=== PATIENT | female | born 1975 | race Caucasian/White ===

== ENCOUNTER → 2023-08-16 | Outpatient (CLI) | payer MEDICAID | END | disposition home or self-care (01) | LOC: MRI 09:50 | PROVIDERS: ATTEND Family Medicine | DX: M47.817 Spondylosis without myelopathy or radiculopathy, lumbosacral region (principal); M48.07 Spinal stenosis, lumbosacral region; M51.26 Other intervertebral disc displacement, lumbar region; D25.9 Leiomyoma of uterus, unspecified; R90.82 White matter disease, unspecified; R29.818 Other symptoms and signs involving the nervous system; R20.0 Anesthesia of skin | CPT/HCPCS: 70551; 72114; 72148 ==

== ENCOUNTER 2024-07-29 12:27 | Outpatient (CLI) | payer MEDICAID ==
[2024-07-29] MEDS ORDERED: APIX5TAB3 PO (17:07)
== END 2024-07-29 23:59 | disposition home or self-care (01) ==
LOC: VAS 12:27
PROVIDERS: ATTEND Nurse Practitioner
DX: I82.462 Acute embolism and thrombosis of left calf muscular vein (principal); M79.662 Pain in left lower leg
CPT/HCPCS: 93971

== ENCOUNTER 2024-07-29 13:13 | Emergency (ER) | payer MEDICAID ==
[~2024-07-29] VITALS: Ht 149.9 cm; Wt 61.9 kg
[2024-07-29 13:54] VITALS: TEMP 98
[2024-07-29] MEDS ORDERED: APIX5TAB3 PO (17:07)
[2024-07-29] MEDS: apixaban 5mg tablet PO ONE (17:51)
[2024-07-29 18:02] VITALS: BP 136/81; PULSE 75; RESP 18; O2SAT 100
== END 2024-07-29 18:04 | disposition home or self-care (01) ==
LOC: ER 13:14
DX: I82.492 Acute embolism and thrombosis of other specified deep vein of left lower extremity (principal)
CPT/HCPCS: 99283

== ENCOUNTER 2024-09-19 12:13 | Inpatient (IN) | payer MEDICAID ==
[2024-09-19] VITALS (8 sets, daily range): BP systolic 113–129; BP diastolic 56–72; PULSE 82–100; RESP 12–21; TEMP 97.5–98.6; O2SAT 98–100
[~2024-09-19] VITALS: Ht 149.9 cm; Wt 60.5 kg
[~2024-09-19 12:13] MED LIST: APIX5TAB3 PO
[2024-09-19 15:51] LABS: URINE HCG NEGATIVE (NEG)
[2024-09-19 15:52] LABS: MEAN CORPUSCULAR HEMOGLOBIN 18.5 PG (27.0-31.0); MEAN CORPUSCULAR HGB CONC 30.3 g/dL (33.0-36.5); MEAN CORPUSCULAR VOLUME 60.9 FL (78-98); MEAN PLATELET VOLUME 7.1 FL (7.4-10.4); PLATELET COUNT 459 X10'3 (140-440); RED CELL DISTRIBUTION WIDTH 20.6 % (11.5-14.5); WHITE BLOOD COUNT 8.8 X10'3 (4.5-11.0)
[2024-09-19 16:02] LABS: HEMATOCRIT 16.4 % (35.0-45.0)
[2024-09-19] MEDS ORDERED: iohexol 300mg/ml 100ml inj. ONE (16:04)
[2024-09-19 16:11] LABS: ALANINE AMINOTRANSFERASE 39 U/L (12-78); ALBUMIN 3.8 G/DL (3.4-5.0); ALBUMIN/GLOBULIN RATIO 1.1 (1.1-1.5); ALKALINE PHOSPHATASE 71 IU/L (46-116); ANION GAP 12 (8-16); ASPARTATE AMINO TRANSFERASE 21 U/L (10-37); BILIRUBIN,TOTAL 0.5 MG/DL (0.1-1.0); BLOOD UREA NITROGEN 9 MG/DL (7-18); BUN/CREATININE RATIO 11.7 (10.0-20.0); CALCIUM 8.5 MG/DL (8.5-10.1); CHLORIDE 107 MMOL/L (99-107); CREATININE 0.77 MG/DL (0.40-0.90); GLUCOSE 99 MG/DL (70-104); POTASSIUM 3.5 MMOL/L (3.5-5.1); SODIUM 141 MMOL/L (135-145); TOTAL CARBON DIOXIDE 22.1 MMOL/L (24-32); TOTAL PROTEIN 7.4 G/DL (6.4-8.2); eCRCL 61 ML/MIN; eGFR 80 ML/MIN
[2024-09-19 16:15] LABS: D-DIMER < 0.19 MG/L FEU (0-0.50)
[2024-09-19 16:26] LABS: ANISOCYTOSIS 3+; PLATELET ESTIMATE INCREASED; TOTAL CELLS COUNTED 100
[2024-09-19 16:27] LABS: HYPOCHROMASIA 2+
[2024-09-19 16:30] LABS: SCHISTOCYTES FEW; TEAR DROP CELLS FEW
[2024-09-19 16:31] LABS: MICROCYTOSIS 2+
[2024-09-19 16:35] LABS: ELLIPTOCYTES FEW
--- NOTE | 2024-09-19 17:11 | Physician Documentation ---
History of Present Illness ~ Chief Complaint: Shortness of Breath Stated Complaint: DVT POSS PE Time Seen by MD: 14:36 HPI Patient is seen today with complaints of shortness of breath that started about three days ago on Monday. Patient states she was diagnosed with blood clots in her legs about a month or so ago and has been on Eliquis since. Patient is currently taking Eliquis 5 mg twice a day. Patient denies any chest pain or abdominal pain or nausea, vomiting, diarrhea or melena or hematochezia or hematemesis. Patient denies any injuries or bleeding that she knows of. She has no other concern or complaint at this time. Medication Reconciliation Allergies: Coded Allergies: No Known Allergies (Unverified , 09/19/24) Scheduled Amlodipine Besylate (Amlodipine Besylate), 1 TAB PO DAILY, (Reported) Apixaban (Eliquis), 1 TAB PO Q12H Losartan Potassium (Losartan Potassium), 1 TAB PO DAILY, (Reported) Review of Systems Constitutional: Denies: chills, fever, weakness Eyes: Denies: pain, blurred vision ENT: Denies: ear pain, nose pain, throat pain, mouth pain Respiratory: Denies: cough, shortness of breath Cardiovascular: Denies: chest pain, palpitations Gastrointestinal: Denies: abdominal pain, nausea, vomiting Genitourinary: Denies: burning, dysuria Female Genitalia: Denies: vaginal discharge, pelvic pain Neurological: Denies: headache, dizziness Musculoskeletal: Denies: pain, swelling Integumentary: Denies: rash, lesions Allergic/Immunologic: Denies: hives, itching Hematologic/Lymphatic: Denies: no symptoms reported Psychiatric: Denies: depression, anxiety Physical Exam Vital Signs: Temperature: 98.6, Source: Oral, Heart Rate: 86, Respiratory Rate: 15, BP: 129/68, Pulse Oximetry: 100, Weight: 60.550 Oxygen Flow Rate: 0 Physical Exam General: Awake and Alert, no acute distress. Patient does appear pale. HEENT: Conjunctiva pink, Sclera clear, Mucus Membranes moist. Neck: Supple without masses and tenderness. Resp: Unlabored. Lungs clear to auscultation bilaterally. Heart: Regular Rate and rhythm, normal S1 and S2 without murmur, rub or gallop. Abdomen: Soft and non tender no organomegaly Extremities: No cyanosis,clubbing or edema. Skin: Warm and Dry. Progress Results/Orders Results/Orders Orders - ROBERT ALVARADO R PAC Cta Chest Pe (09/19/24 16:46) Cbc/Diff (09/19/24 15:22) Man Diff (09/19/24 15:38) Page Hospitalist (09/19/24 16:13) Fill Out Med Reconciliation (09/19/24 16:13) Type And Screen (09/19/24 16:14) Lrpc - Active Bleeding (09/19/24 16:14) Pathology Review (09/19/24 15:38) Completed Orders - ROBERT ALVARADO R PAC Cta Chest Pe (09/19/24 16:46) CMP (09/19/24 15:22) Hcg, Ur Ql (09/19/24 15:22) D-Dimer (09/19/24 15:22) Iohexol 300mg/Ml 100ml Inj. (Omnipaque-3 (09/19/24 16:04) Vital Signs 09/19/24 09/19/24 09/19/24 12:40 14:36 14:36 Temp 98.6 Pulse 93 86 Resp 16 15 15 B/P (MAP) 120/61 129/68 (88) Pulse Ox 100 100 O2 Flow Rate 0 Laboratory Tests Test 09/19/24 15:30 09/19/24 15:38 09/19/24 17:40 Urine HCG, Qualitative Negative White Blood Count 8.8 Red Blood Count 2.70 L Hemoglobin 5.0 *L Hematocrit 16.4 *L Mean Corpuscular Volume 60.9 L Mean Corpuscular Hemoglobin 18.5 L Mean Corpuscular Hemoglobin Concent 30.3 L Red Cell Distribution Width 20.6 H Platelet Count 459 H Mean Platelet Volume 7.1 L Neutrophils (%) (Auto) Lymphocytes (%) (Auto) Monocytes (%) (Auto) Eosinophils (%) (Auto) Basophils (%) (Auto) Neutrophils # (Auto) Lymphocytes # (Auto) Monocytes # (Auto) Eosinophils # (Auto) Basophils # (Auto) CBC Comment Differential Total Cells Counted 100 Neutrophils % (Manual) 73.0 Lymphocytes % (Manual) 22.0 Monocytes % (Manual) 5.0 Platelet Estimate Increased Red Blood Cell Morphology Perf Hypochromasia 2+ Poikilocytosis Basophilic Stippling Anisocytosis 3+ Microcytosis 2+ Tear Drop Cells Few Elliptocytes Few Schistocytes Few D-Dimer < 0.19 D-Dimer Comment Sodium Level 141 Potassium Level 3.5 Chloride Level 107 Carbon Dioxide Level 22.1 L Anion Gap 12 Blood Urea Nitrogen 9 Creatinine 0.77 Estimated GFR/1.73 m2 80 BUN/Creatinine Ratio 11.7 Glucose Level 99 Calcium Level 8.5 Total Bilirubin 0.5 Aspartate Amino Transf (AST/SGOT) 21 Alanine Aminotransferase (ALT/SGPT) 39 Alkaline Phosphatase 71 Total Protein 7.4 Albumin 3.8 Globulin 3.6 Albumin/Globulin Ratio 1.1 Chemistry Comments Medical Decision Making Findings Patient is seen today with complaints of shortness of breath that started about three days ago on Monday. Patient states she was diagnosed with blood clots in her legs about a month or so ago and has been on Eliquis since. Patient is currently taking Eliquis 5 mg twice a day. Patient denies any chest pain or abdominal pain or nausea, vomiting, diarrhea or melena or hematochezia or hematemesis. Patient denies any injuries or bleeding that she knows of. She has no other concern or complaint at this time. Patient's labs did show severe anemia with hemoglobin at 5.0. Patient will be admitted to hospitalist for consult and further eval. I did order blood transfusion of 2 units as well as type and screen. Departure Disposition: 09 ADMITTED INPATIENT Admitted to Inpatient Unit: to hospitalist Admission Level of Care: Med/Surg with Tele Impression: Primary Impression: Anemia Qualified Codes: D64.9 - Anemia, unspecified Additional Impression: Difficulty breathing Condition: Stable Referrals: NO PRIMARY CARE PROVIDER (PCP) Signature Scribe Signature: No scribe Attestation: No scribe ROBERT ALVARADO PAC September 19, 2024 17:11
--- NOTE | 2024-09-19 17:17 | RADIOLOGY REPORT ---
Indication: PE Rule Out, SOB Technique: CT axial images of the chest are obtained with intravenous contrast per CT angiogram prot ocol. Coronal and sagittal reformats were obtained. Radiation Dose Information: CTDI volume is 8.3 mGy. Dose-length product is 327 mGy*cm Comparison: None FINDINGS: No filling defect within the main left and right pulmonary arteries. The segmental and subsegmental branches are suboptimally opacified, limiting evaluation. Trachea patent. No pneumothorax. Bilateral atelectasis. There is no pulmonary airspace consolidation . Heart normal in size. No mediastinal/ hilar lymphadenopathy. Left thyroid nodule measuring 1.8 cm. No supraclavicular, axillary lymphadenopathy. No aggressive osseous process. [id number]-xtewfbny thoracic degenerative disc disease IMPRESSION: 1. Suboptimal opacification of the pulmonary arteries. No large PE identified. The segmental and hoang bsegmental branches are suboptimally opacified/ evaluated. If clinical concern persists recommend ob taining repeat CT angiogram of the chest. 2. 1.8 cm left thyroid nodule which can be further characterized with thyroid ultrasound in the nonem ergent setting.
[2024-09-19] MEDS ORDERED: potassium Cl 40MEQ/1/2NS 520ml 520 ML IV PRN ×2 (17:50)
[2024-09-19] MEDS ORDERED: magnesium sulf-water 4G/100mL 100 ML IV PRN ×2 (17:50)
[2024-09-19] MEDS ORDERED: potassium Cl 20 mEq SR tablet PO PRN ×4 (17:50)
[2024-09-19] MEDS ORDERED: magnesium sulf-water 2g/50mL 50 ML IV PRN ×2 (17:50)
[2024-09-19] MEDS ORDERED: acetaminophen 325mg tablet PO PRN ×3 (17:50)
[2024-09-19] MEDS ORDERED: mag hydrox/Alum hydrox/simeth 30ml oral suspension PO PRN (17:50)
[2024-09-19] MEDS ORDERED: ondansetron/PF 4mg/2ml inj IV PRN ×2 (17:50)
[2024-09-19] MEDS ORDERED: magnesium hydroxide 30ml (MOM) UD suspension PO PRN (17:50)
[2024-09-19] MEDS ORDERED: magnesium Cl slow-release 64mg tablet PO PRN ×2 (17:50)
--- NOTE | 2024-09-19 18:06 | HISTORY AND PHYSICAL-Residence ---
History & Physical Providers to CC Resident Creating Document: AL PHILLIP RES ~ History of Present Illness Primary Medical Doctor: Dr Fernandes, [facility] Reason for Admit\Complaint: Shortness of breath History of Present Illness 49-year-old female patient with a past medical history of hypertension and left lower limb VTE presented to the hospital with complaints of new onset shortness of breath. She stated that she started noticing symptoms of shortness of breaths starting on Monday with increasing SOB with short distance as well. SOB is also associated with palpitations and dry cough. She states that the only thing that wakes her up in the middle of the night as a dry cough. Denies any chest tightness, chest pain, dizziness, or syncopal episodes. Also denies recent sick contacts or recent URTI symptoms. Patient has recently diagnosed with a left lower limb unprovoked VTE one week ago and was started on Eliquis. She also developed right lower limb pain that starting from the groin and extending all the way down to the foot two days ago as well due to which she has a scheduled outpatient ultrasound planned for the 24 of September. Denies any joint pains, muscle pains, joint stiffness, synovitis, new rashes, prior history of bleeding or clotting issues, prolonged or heavy menstrual cycle, miscarriages, numbness or weakness. Denies use of estrogen or other hormonal pills, no hormone IUDs as well. Denies loss of appetite or weight loss. Allergies: Coded Allergies: No Known Allergies (Unverified , 09/19/24) Home Medications Home Medications Active Eliquis (Apixaban) 5 Mg Tablet 1 Tab PO Q12H 30 Days Past Medical History Past Medical History Hypertension Left lower limb VTE Past Surgical History Surgical History Comment None Past Social History Social History Comment Nonsmoker, no alcohol use or illicit drug abuse. Has never worked in her lifetime. Lives at home with the parents. She has two kids. ROS ROS As stated above in the HPI, otherwise all systems are reviewed and negative. Constitutional: Denies: chills, fever, weakness Eyes: Denies: pain, blurred vision ENT: Denies: ear pain, nose pain, throat pain, mouth pain Respiratory: Denies: cough, shortness of breath Cardiovascular: Denies: chest pain, palpitations Gastrointestinal: Denies: abdominal pain, nausea, vomiting Genitourinary: Denies: burning, dysuria Neurological: Denies: headache, dizziness Musculoskeletal: Denies: pain, swelling Integumentary: Denies: rash, lesions Allergic/Immunologic: Denies: hives, itching Hematologic/Lymphatic: Denies: no symptoms reported Psychiatric: Denies: depression, anxiety Exam Vitals: Vital Signs Date Time Temp Pulse Resp B/P (MAP) Pulse Ox O2 Delivery O2 Flow Rate FiO2 09/19/24 14:36 86 15 129/68 (88) 100 09/19/24 12:40 98.6 0 General: General: Awake and Alert, no acute distress. Intentional and resting tremulousness of her lower jaw and her extremities HEENT: Conjunctiva pale, Sclera clear, Mucus Membranes moist. Resp: Unlabored. Lungs clear to auscultation bilaterally. Heart: Regular Rate and rhythm, normal S1 and S2 without murmur, rub or gallop. Abdomen: Soft and non tender no organomegaly Extremities: No cyanosis,clubbing or edema. DIGITAL SOLUTION ARCHITECT: Alert oriented x4. No motor or sensory deficits. No cranial nerve deficits. Rectal exam: Large hemorrhoids present Skin: Warm and Dry. Diagnostic Data Last Recorded Lab Results: 09/19/24 1538 09/19/24 1538 Diagnostic Data: Laboratory Tests Test 09/19/24 15:38 D-Dimer < 0.19 MG/L FEU (0-0.50) D-Dimer Comment Advance Care Planning Advanced Care plannin - 30 Minutes Additional Plan 1. Acute shortness of breath: Acute microcytic and hypochromic anemia Hemoglobin 5.0 Anemia likely leading to acute shortness of breath In the setting of acute unprovoked left lower limb VTE D-dimers less than 0.1, CTA unable to exclude pulmonary embolism Follow bilateral venous ultrasound to rule out lower limb DVT; mainly of the right leg Continue Eliquis 5 mg b.i.d. Follow COVID-19 tests For the anemia, ordered 2 units PRBC Positive stool for occult blood Continue monitoring CBC and transfuse if hemoglobin less than seven 2. Heavy menstrual cycle: Likely secondary to Eliquis use But follow pelvic ultrasound to rule out anything significant 3. Hypertension: Continue home medication of Cozaar after reconciliation Lines: PIV Code status: Full code Diet: Regular GI prophylaxis: Protonix DVT prophylaxis: Eliquadrianne Phillip PGY2, Internal medicine resident Date of Service: September 19, 2024 Billing Provider: MELVA MARAVILLA MD Common Visit Codes: [id number]-[id number] INP/OBS CARE (HIGH) Secondary Visit Codes: [id number] CARE PLAN 30 MINUTES AL PHILLIP, JUVENAL September 19, 2024 18:06 MELVA MARAVILLA MD September 19, 2024 19:18
--- NOTE | 2024-09-19 19:00 | RADIOLOGY REPORT ---
Clinical History SOB Comparison None Without Contrast PORTER GALLO, [id number] Technique: Single view PA upright chest x-ray Findings: The lungs are unremarkable. No pleural abnormality. The cardiomediastinal silhouette is unremarkable for an AP view. No acute osseous abnormality. The imaged part of the upper abdomen reveals nonspecific gaseous distention of the colon. Impression: No evidence of acute cardiopulmonary disease This report was electronically signed by Maira Durant MD on 09/19/2024 6:57:48 PM.
[2024-09-19] MEDS ORDERED: AMLO5TAB16 PO (19:01)
[2024-09-19] MEDS ORDERED: LOSA100T58 PO (19:01)
[2024-09-19] MEDS: K and/or MAG REPLACEMENT MC SCH (19:04)
[2024-09-19 19:07] LABS: % IRON SATURATION 2 % (11-46); IRON 11 UG/DL (49-151); TOTAL IRON BINDING CAPACITY 522 UG/DL (259-388)
[2024-09-19 19:35] LABS: OCCULT BLOOD STOOL POSITIVE (Neg)
[2024-09-19] MEDS: docusate sod 100mg capsule PO SCH (21:04)
[2024-09-19] MEDS: apixaban 5mg tablet PO SCH (21:05)
[2024-09-19] MEDS: pantoprazole 40MG/NS 100ML BAG 100 ML IV SCH (23:22)
[2024-09-20] VITALS (8 sets, daily range): BP systolic 110–150; BP diastolic 54–78; PULSE 75–93; RESP 15–26; TEMP 97.4–98.5; O2SAT 97–100
[2024-09-20 03:41] LABS: BASOPHILS # (AUTO) 0.1 X10'3 (0-0.2); EOSINOPHILS # (AUTO) 0.1 X10'3 (0-0.9)
[2024-09-20 03:43] LABS: BASOPHILS % (AUTO) 1.3 % (0-1); EOSINOPHILS % (AUTO) 1.1 % (0-6); HEMATOCRIT 28.6 % (35.0-45.0); HEMOGLOBIN 8.9 g/dl (12.0-16.0); LYMPHOCYTES # (AUTO) 3.2 X10'3 (1.1-4.8); LYMPHOCYTES % (AUTO) 38.3 % (21-51); MEAN CORPUSCULAR HEMOGLOBIN 21.6 PG (27.0-31.0); MEAN CORPUSCULAR HGB CONC 31.2 g/dL (33.0-36.5); MEAN CORPUSCULAR VOLUME 69.1 FL (78-98); MEAN PLATELET VOLUME 7.4 FL (7.4-10.4); MONOCYTES # (AUTO) 0.6 X10'3 (0-0.9); MONOCYTES % (AUTO) 6.7 % (2-12); NEUTROPHILS # (AUTO) 4.4 X10'3 (1.8-7.7); NEUTROPHILS % (AUTO) 52.6 % (42-75); PLATELET COUNT 410 X10'3 (140-440); RED BLOOD COUNT 4.15 X10'6 (4.20-5.60); RED CELL DISTRIBUTION WIDTH 25.4 % (11.5-14.5); WHITE BLOOD COUNT 8.3 X10'3 (4.5-11.0)
[2024-09-20 03:52] LABS: ALBUMIN 3.5 G/DL (3.4-5.0); ANION GAP 11 (8-16); BLOOD UREA NITROGEN 12 MG/DL (7-18); BUN/CREATININE RATIO 14.1 (10.0-20.0); CALCIUM 8.6 MG/DL (8.5-10.1); CHLORIDE 107 MMOL/L (99-107); CREATININE 0.85 MG/DL (0.40-0.90); GLUCOSE 87 MG/DL (70-104); SODIUM 138 MMOL/L (135-145); TOTAL CARBON DIOXIDE 20.3 MMOL/L (24-32); eCRCL 55 ML/MIN; eGFR 71 ML/MIN
[2024-09-20] MEDS ORDERED: pantoprazole 40 MG vial IV SCH (08:00)
[2024-09-20 08:37] LABS: FERRITIN 3 NG/ML (8-252)
--- NOTE | 2024-09-20 10:51 | VASCULAR REPORT ---
EXAM: VASC VL VENOUS Clinical History: History of DVT in the left gastroc. Comparison: VASC VL VENOUS on DOS: 07/29/24 Technique: Duplex Doppler evaluation of the deep venous systems of both lower extremities from the co mmon femoral veins to the popliteal veins including color Doppler and spectral/pulsed waveform analys is was performed. Findings: RIGHT SIDE: The common femoral vein demonstrates appropriate compressibility and waveform variability. There is compressibility/patency of the great saphenous vein at the proximal thigh. The femoral vein demonstrates appropriate compressibility and waveform variability. The deep femoral vein demonstrates appropriate compressibility and waveform variability. The popliteal vein demonstrates appropriate compressibility and waveform variability. There is color flow at the tibioperoneal trunk and in the posterior tibial vein. LEFT SIDE: The common femoral vein demonstrates appropriate compressibility and waveform variability. There is compressibility/patency of the great saphenous vein at the proximal thigh. The femoral vein demonstrates appropriate compressibility and waveform variability. The deep femoral vein demonstrates appropriate compressibility and waveform variability. The popliteal vein demonstrates appropriate compressibility and waveform variability. There is color flow at the tibioperoneal trunk and in the posterior tibial vein. Impression: 1. No right or left femoropopliteal venous thrombosis.
[2024-09-20 12:18] LABS: FREE T4 (FREE THYROXINE) 0.82 NG/DL (0.73-1.40); THYROID STIMULATING HORMONE 1.14 ulU/ml (0.34-4.50)
[2024-09-20] MEDS: ferrous sulfate 325mg tablet PO SCH (12:27)
[2024-09-20] MEDS: acetaminophen 325mg tablet PO PRN (13:44)
--- NOTE | 2024-09-20 14:08 | PROGRESS NOTE- Residence ---
Progress Note - Resident Providers to CC Resident Creating Document: AL CANALES, JUVENAL ~ Central Line/PICC still needed: No Timmons-Non Protocol Timmons Indications Met/Not Met: F/C Indications Not Met Antibiotic Timeout Antibiotic Ordered?: No Objective Vital Signs Date Time Temp Pulse Resp B/P (MAP) Pulse Ox O2 Delivery O2 Flow Rate FiO2 09/20/24 07:45 Room Air 0.0 09/20/24 06:30 79 09/20/24 06:00 97.9 19 138/76 (96) 98 Result Diagram: 09/20/24 0330 09/20/24 033 General: Awake and Alert, no acute distress. HEENT: Conjunctiva pale, Sclera clear, Mucus Membranes moist. Resp: Unlabored. Lungs clear to auscultation bilaterally. Heart: Regular Rate and rhythm, normal S1 and S2 without murmur, rub or gallop. Abdomen: Soft and non tender no organomegaly Rectal exam: Large external hemorrhoids noted Extremities: No cyanosis,clubbing or edema. Skin: Warm and Dry. 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 She is being evaluated for new onset significant anemia. Plan Plan 1. Acute shortness of breath: Improved Acute microcytic and hypochromic anemia Hemoglobin 5.0; improved to 8.9 Iron-deficiency anemia Anemia likely leading to acute shortness of breath In the setting of acute unprovoked left lower limb VTE D-dimers less than 0.1, CTA unable to exclude pulmonary embolism Follow bilateral venous ultrasound to rule out lower limb DVT; mainly of the right leg Continue Eliquis 5 mg b.i.d. Follow COVID-19 tests For the anemia, ordered 2 units PRBC Positive stool for occult blood Continue monitoring CBC and transfuse if hemoglobin less than seven 09/20/2024: Received 2 units PRBC after which he had improved from 5.0-8.9, which is unusual and raises suspicion to either want to be a wrong lab report Follow CBC q.12h and monitor for hemoglobin levels Continues to deny any melena or hematochezia Discussed patient with Dr. Pitts; recommends colonoscopy tomorrow in a.m.. If colonoscopy negative, Dr. Pitts we will continue with the EGD. Continue Protonix drip at this time Iron studies revealed iron deficiency anemia. Started the patient on ferrous sulfate and vitamin-C. Colonoscopies we will be able to identify possible underlying GI disorders leading to CYDNEY like celiac/IBD NPO after midnight. Clear liquid diet for today 2. History of left lower limb VTE: On Eliquis 5 mg b.i.d. Unprovoked VTE Follows Dr. Mcbride [facility] Bilateral lower limb venous Dopplers are negative for VTE We will obtain records from [facility] for prior venous Dopplers We will hold Eliquis 5 mg b.i.d. at this time, restart if colonoscopy and endoscopy are negative All possibly diagnosed to causes of unprovoked VTE including antiphospholipid antibody syndrome, protein deficiency/mutations, possible malignancy has been addressed. We will follow up outpatient with the PCP if requiring a diagnosis 3. Heavy menstrual cycle: Likely secondary to Eliquis use Awaiting pelvic ultrasound 4. Hypertension: Continue home medication of Cozaar after reconciliation Lines: PIV Code status: Full code Diet: Regular GI prophylaxis: Protonix DVT prophylaxis: Ginger Canales PGY2, Internal medicine resident Date of Service: September 20, 2024 Billing Provider: MELVA MARAVILLA MD Common Visit Codes: [id number] INP/OBS CARE(HIGH) AL CANALES, RES September 20, 2024 14:08 MELVA MARAVILLA MD September 20, 2024 18:33
[2024-09-20 15:47] LABS: MEAN CORPUSCULAR VOLUME 68.6 FL (78-98)
[2024-09-20 15:49] LABS: HEMATOCRIT 26.3 % (35.0-45.0); HEMOGLOBIN 8.6 g/dl (12.0-16.0); MEAN CORPUSCULAR HEMOGLOBIN 22.3 PG (27.0-31.0); MEAN CORPUSCULAR HGB CONC 32.5 g/dL (33.0-36.5); MEAN PLATELET VOLUME 8.3 FL (7.4-10.4); PLATELET COUNT 396 X10'3 (140-440); RED BLOOD COUNT 3.84 X10'6 (4.20-5.60); RED CELL DISTRIBUTION WIDTH 25.9 % (11.5-14.5); WHITE BLOOD COUNT 7.3 X10'3 (4.5-11.0)
[2024-09-20] MEDS: PEG 3350/Na sulf,bicarb,Cl/KCl oral sol 4 liter bottle PO ONE (15:59)
[2024-09-20 16:19] LABS: TOTAL CELLS COUNTED 100
[2024-09-20 16:20] LABS: ANISOCYTOSIS 3+; ELLIPTOCYTES 1+; HYPOCHROMASIA 1+; MICROCYTOSIS 2+; PLATELET ESTIMATE NORMAL; SCHISTOCYTES FEW; STOMATOCYTES FEW; TARGET CELLS FEW
[2024-09-20 16:21] LABS: POLYCHROMASIA 1+
--- NOTE | 2024-09-20 17:08 | RADIOLOGY REPORT ---
Procedure: US ULTRASOUND PELVIS W/ORWO DPLX 09/20/2024 03:08 PM Indication: Heavy menstrual cycle Comparison: None Technique: Real-time grayscale and color images were obtained utilizing a transabdominal probe. FINDINGS: UTERUS: Anteverted, measuring 9.4 cm in length. A 4.6 x 2.3 x 2.7 cm subserosal leiomyoma is seen i n the anterior wall. ENDOMETRIAL STRIPE: 1.3 cm in thickness. Homogenous echotexture. No fluid in the endometrial canal. CERVIX: Few subcentimeter simple Nabothian cysts are seen. RIGH OVARY: 3.5 cm in length. Delete. Preserved vascular flow. No suspicious lesions identified. LEFT OVARY: 2.8 cm in length. Delete Preserved vascular flow. No suspicious lesions identified. CUL-DE-SAC: No significant fluid noted. OTHER: None. IMPRESSION: 1. No sonographic evidence for an acute intrapelvic process. 2. Myomatous uterus a 4.6 cm subserosal leiomyoma noted in the anterior wall.
[2024-09-20] MEDS: ascorbic acid 500mg tablet PO SCH (17:34)
[2024-09-21] VITALS (11 sets, daily range): BP systolic 121–143; BP diastolic 56–110; PULSE 14–82; RESP 12–74; TEMP 97.4–97.8; O2SAT 97–99
[2024-09-21 00:21] LABS: HEMOGLOBIN 9.1 g/dl (12.0-16.0)
[2024-09-21 00:23] LABS: HEMATOCRIT 29.3 % (35.0-45.0); MEAN CORPUSCULAR HEMOGLOBIN 21.4 PG (27.0-31.0); MEAN CORPUSCULAR HGB CONC 31.1 g/dL (33.0-36.5); MEAN CORPUSCULAR VOLUME 68.9 FL (78-98); MEAN PLATELET VOLUME 8.8 FL (7.4-10.4); PLATELET COUNT 401 X10'3 (140-440); RED BLOOD COUNT 4.26 X10'6 (4.20-5.60); RED CELL DISTRIBUTION WIDTH 25.8 % (11.5-14.5); WHITE BLOOD COUNT 6.2 X10'3 (4.5-11.0)
[2024-09-21 02:15] LABS: TOTAL CELLS COUNTED 100
[2024-09-21 02:17] LABS: ANISOCYTOSIS 3+; HYPOCHROMASIA 1+; MICROCYTOSIS 2+; PLATELET ESTIMATE NORMAL; TARGET CELLS FEW
[2024-09-21 05:57] LABS: HEMOGLOBIN 8.7 g/dl (12.0-16.0); MEAN CORPUSCULAR HEMOGLOBIN 21.6 PG (27.0-31.0); MEAN CORPUSCULAR HGB CONC 31.2 g/dL (33.0-36.5); MEAN CORPUSCULAR VOLUME 69.3 FL (78-98); MEAN PLATELET VOLUME 8.2 FL (7.4-10.4); PLATELET COUNT 380 X10'3 (140-440); RED BLOOD COUNT 4.05 X10'6 (4.20-5.60); RED CELL DISTRIBUTION WIDTH 25.6 % (11.5-14.5)
[2024-09-21 06:25] LABS: ALBUMIN 3.3 G/DL (3.4-5.0); ANION GAP 12 (8-16); BLOOD UREA NITROGEN 8 MG/DL (7-18); BUN/CREATININE RATIO 12.3 (10.0-20.0); CALCIUM 8.1 MG/DL (8.5-10.1); CHLORIDE 107 MMOL/L (99-107); CREATININE 0.65 MG/DL (0.40-0.90); GLUCOSE 80 MG/DL (70-104); MAGNESIUM 2.1 MG/DL (1.5-2.4); POTASSIUM 3.5 MMOL/L (3.5-5.1); SODIUM 141 MMOL/L (135-145); TOTAL CARBON DIOXIDE 22.2 MMOL/L (24-32); eCRCL 72 ML/MIN; eGFR > 90 ML/MIN
[2024-09-21 07:00] LABS: WHITE BLOOD COUNT 6.7 X10'3 (4.5-11.0)
[2024-09-21 07:01] LABS: HEMATOCRIT 27.3 % (35.0-45.0); HEMOGLOBIN 8.5 g/dl (12.0-16.0); MEAN CORPUSCULAR HEMOGLOBIN 21.7 PG (27.0-31.0); MEAN CORPUSCULAR HGB CONC 31.3 g/dL (33.0-36.5); MEAN CORPUSCULAR VOLUME 69.1 FL (78-98); PLATELET COUNT 374 X10'3 (140-440); RED BLOOD COUNT 3.94 X10'6 (4.20-5.60); RED CELL DISTRIBUTION WIDTH 25.9 % (11.5-14.5)
[2024-09-21 07:06] LABS: ANISOCYTOSIS 3+; MICROCYTOSIS 2+; PLATELET ESTIMATE NORMAL; TOTAL CELLS COUNTED 100
[2024-09-21 07:07] LABS: TARGET CELLS FEW
--- NOTE | 2024-09-21 07:09 | CARDIOLOGY REPORT ---
APPROVED REPORT EXAM: Comprehensive 2D, Doppler, and color-flow Echocardiogram. Patient Location: 301 Blood Pressure: 125/71 mmHg Heart Rate: 90 bpm Rhythm: NSR Indications SOB Hypertension Vineyard Tender unknown No previous echo 2D Dimensions LA Diam3.5 cm IVSd 1.1 (0.7-1.1cm) LVDd 4.8 cm PWd 1.0 (0.7-1.1cm) IVSs 1.4 (0.8-1.2cm) LVDs 3.0 (2.5-4.0cm) Aortic Root(2D) 2.8 cm PWs 1.4 (0.8-1.2cm) LVOT Diameter 1.92 (1.8-2.4cm) LVEF(%) 68.4 (>50%) FS (%) 38.3 % SV 74.5 ml CO 7.2 L/min M-Mode Dimensions MV EPSS 0.7 (<0.5cm) Aortic Valve AoV Peak Blake. 160.8 cm/s AoV VTI 28.8 cm AO Peak GR. 10.3 mmHg AO Mean GR. 5 mmHg LVOT VTI 27.15 cm LVOT Peak Blake. 138.6 cm/s PAULY(VTI)/BSA 2.73 cm2/m2 PAULY (VTI) 2.73 cm2 Mitral Valve MV E Velocity 69.8 cm/s MV Peak Gr. 3 mmHg MV DECEL TIME 180 ms MV A Velocity 87.6 cm/s MV PHT 32 ms E/A Ratio 0.8 MVA (PHT) 6.88 cm2 MV VMax92.5 cm/s TDI Medial E' P. V 11.48 cm/s E/Medial E' 6.1 Tricuspid Valve TR P. Velocity 352 cm/s RAP ESTIMATE 10 mmHg TR Peak Gr. 50 mmHg RVSP 60 mmHg Pulmonary Vein S1 Velocity 70.1 cm/s D2 Velocity 36.4 cm/s PVa Yxrcnxim48.6 cm/s PVa [id number] msec LEFT VENTRICLE Normal LV size and wall thickness. Overall systolic function is normal. LVEF is 65%. RIGHT VENTRICLE RV appears mildly dilated with normal contractility. RVSP is estimated at 60 mmHG. ATRIA The left atrium size is normal. AORTIC VALVE Trileaflet AV appears sclerotic without stenosis. No insufficiency. MITRAL VALVE MV is thickened with mild annular thickening and no stenosis. Trace mitral regurgitation. TRICUSPID VALVE The tricuspid valve is normal in structure. Mild tricuspid regurgitation. PULMONIC VALVE The pulmonary valve is normal in structure. Trace pulmonic regurgitation. GREAT VESSELS The aortic root is normal in size. IVC is not well visualized. PERICARDIUM There is no pericardial effusion. Other Information Study Quality: Adequate but poor subcostals Conclusion Normal LV size and wall thickness. Overall systolic function is normal. LVEF is 65%. RV appears mildly dilated with normal contractility. RVSP is estimated at 60 mmHG. The left atrium size is normal. Trileaflet AV appears sclerotic without stenosis. No insufficiency. MV is thickened with mild annular thickening and no stenosis. Trace mitral regurgitation. The tricuspid valve is normal in structure. Mild tricuspid regurgitation. The pulmonary valve is normal in structure. Trace pulmonic regurgitation. There is no pericardial effusion.
[2024-09-21 08:22] LABS: NUCLEATED RED BLOOD CELLS 1 /100WBC (0-0); TOTAL CELLS COUNTED 100
[2024-09-21 08:23] LABS: ANISOCYTOSIS 3+; HYPOCHROMASIA 2+; MICROCYTOSIS 2+; PLATELET ESTIMATE NORMAL
[2024-09-21 08:24] LABS: POLYCHROMASIA 1+; TARGET CELLS FEW; TEAR DROP CELLS FEW
[2024-09-21] MEDS ORDERED: MIDAZolam 1mg/ml 10ml vial ONE (11:05)
[2024-09-21] MEDS ORDERED: LIDOcaine 2% Viscous 15ml cup ONE (11:05)
[2024-09-21] MEDS ORDERED: fentaNYL/PF 50MCG/1 ML 2ML syringe ONE (11:05)
[2024-09-21] MEDS ORDERED: MIDAZolam 1 MG/ML 5ML VIAL ONE (11:06)
--- NOTE | 2024-09-21 14:40 | PROGRESS NOTE- Residence ---
Progress Note - Resident Providers to CC Resident Creating Document: AL CANALES, JUVENAL ~ Central Line/PICC still needed: No Timmons-Non Protocol Timmons Indications Met/Not Met: F/C Indications Not Met Antibiotic Timeout Antibiotic Ordered?: No Subjective Patient underwent the colonoscopy today. No acute overnight events or acute complaints at this time. Has not had any episodes of melena, hematochezia or bleeding per vagina through the hospitalization. Objective Vital Signs Date Time Temp Pulse Resp B/P (MAP) Pulse Ox O2 Delivery O2 Flow Rate FiO2 09/21/24 12:59 70 16 121/68 98 09/21/24 12:09 Nasal Cannula 4.0 09/21/24 06:00 97.4 Result Diagram: 09/21/24 0638 09/21/24 0426 General: Awake and Alert, no acute distress. HEENT: Conjunctiva pale, Sclera clear, Mucus Membranes moist. Resp: Unlabored. Lungs clear to auscultation bilaterally. Heart: Regular Rate and rhythm, normal S1 and S2 without murmur, rub or gallop. Abdomen: Soft and non tender no organomegaly Extremities: No cyanosis,clubbing or edema. Skin: Warm and Dry. 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 She is being evaluated for new onset significant anemia. Plan Plan 1. Acute shortness of breath: Improved Acute microcytic and hypochromic anemia Hemoglobin 5.0; improved after 2 units PRBC Iron-deficiency anemia- heavy menstrual bleeding and severe gastritis induced Anemia likely leading to acute shortness of breath In the setting of acute unprovoked left lower limb VTE D-dimers less than 0.1, CTA unable to exclude pulmonary embolism Follow bilateral venous ultrasound to rule out lower limb DVT; mainly of the right leg Continue Eliquis 5 mg b.i.d. Follow COVID-19 tests For the anemia, ordered 2 units PRBC Positive stool for occult blood Continue monitoring CBC and transfuse if hemoglobin less than seven 09/20/2024: Received 2 units PRBC after which he had improved from 5.0-8.9, which is unusual and raises suspicion to either want to be a wrong lab report Follow CBC q.12h and monitor for hemoglobin levels Continues to deny any melena or hematochezia Discussed patient with Dr. Pitts; recommends colonoscopy tomorrow in a.m.. If colonoscopy negative, Dr. Pitts we will continue with the EGD. Continue Protonix drip at this time Iron studies revealed iron deficiency anemia. Started the patient on ferrous sulfate and vitamin-C. Colonoscopies we will be able to identify possible underlying GI disorders leading to CYDNEY like celiac/IBD NPO after midnight. Clear liquid diet for today 09/21/2024: H&H to remain stable No further blood transfusions Status post colonoscopy today, no active bleeding noted. Hemorrhoids present. Severe gastritis also present. GI recommends high dietary fiber and to avoid straining. Protonix drip discontinued and started on p.o. Protonix to be taken every day b.i.d. for one month followed by Protonix daily after. We will resume regular diet and watch for CBC stability Pelvic ultrasound reveals presence of a subserosal leiomyoma which could be the etiology behind the anemia and increased PV bleed Outpatient evaluation by PCP and referral to OBGYN 2. History of left lower limb VTE: On Eliquis 5 mg b.i.d. [facility] lower limb venous Dopplers are negative for VTE We will obtain records from [facility] for prior venous Dopplers We will hold Eliquis 5 mg b.i.d. at this time, restart if colonoscopy and endoscopy are negative All possibly diagnosed to causes of unprovoked VTE including antiphospholipid antibody syndrome, protein deficiency/mutations, possible malignancy has been addressed. We will follow up outpatient with the PCP if requiring a diagnosis 09/21/2024: Review of venous ultrasound in the hospital ruled out presence of any VTE Continue anticoagulation as per her home medications Outpatient evaluation for further duration of therapy by PMD 3. Heavy menstrual cycle: Secondary to the leiomyoma and the Eliquis use 4. Hypertension: Central obesity Continue home medication of Cozaar after reconciliation Lines: PIV Code status: Full code Diet: Regular GI prophylaxis: Protonix DVT prophylaxis: Ginger Canales PGY2, Internal medicine resident Date of Service: September 21, 2024 Billing Provider: MELVA MARAVILLA MD Common Visit Codes: [id number] INP/OBS CARE(HIGH) AL CANALES, JUVENAL September 21, 2024 14:40 MELVA MARAVILLA MD September 21, 2024 16:53
[2024-09-21 16:38] LABS: HEMATOCRIT 25.9 % (35.0-45.0); HEMOGLOBIN 8.3 g/dl (12.0-16.0); MEAN CORPUSCULAR HEMOGLOBIN 21.9 PG (27.0-31.0); MEAN CORPUSCULAR VOLUME 68.4 FL (78-98); MEAN PLATELET VOLUME 7.8 FL (7.4-10.4); PLATELET COUNT 344 X10'3 (140-440); RED BLOOD COUNT 3.79 X10'6 (4.20-5.60); RED CELL DISTRIBUTION WIDTH 26.2 % (11.5-14.5)
[2024-09-21 17:14] LABS: ANISOCYTOSIS 3+; NUCLEATED RED BLOOD CELLS 1 /100WBC (0-0); PLATELET ESTIMATE NORMAL; POLYCHROMASIA 1+; TOTAL CELLS COUNTED 100
[2024-09-21 17:15] LABS: ELLIPTOCYTES FEW; HYPOCHROMASIA 2+; MICROCYTOSIS 2+; TARGET CELLS FEW; TEAR DROP CELLS FEW
--- NOTE | 2024-09-21 17:52 | CONSULTATION ---
DATE OF CONSULTATION: 09/21/2024 DICTATING PHYSICIAN: Jeet Pitts MD REASON FOR CONSULTATION: Anemia, GI bleeding. HISTORY OF PRESENT ILLNESS: The patient is a 49-year-old female who presented to the ED complaining of shortness of breath and weakness. She was found to have anemia. She has been on Eliquis for VTE and she developed weakness and shortness of breath. She presents to the ED and had found a positive stool with anemia. She denies nausea, vomiting, hematemesis, bright red blood per rectum or melena. She has not had either EGD or colonoscopy before. She denies family history of colon cancer or polyps. PHYSICAL EXAMINATION: GENERAL: The patient is alert, awake, and in no acute distress. HEENT: Sclerae are anicteric. NECK: Supple. CARDIOVASCULAR: Regular rate. ABDOMEN: Soft. No guarding or rigidity. LOWER EXTREMITIES: No edema. IMPRESSION AND PLAN: The patient is a 49-year-old female who presents with positive stool, symptomatic anemia. Never had EGD or colonoscopy before. Given her presentation, EGD and colonoscopy are indicated for further evaluation. The indications, risks, and alternatives to the procedures, especially risks of infection, bleeding, perforation, cardiac and pulmonary decompression, were discussed with her in detail. She understood and agreed to proceed. Meanwhile, we would recommend prep her with GoLYTELY, optimize her cardiopulmonary condition and keep her n.p.o. We will plan for EGD and a colonoscopy. Jeet Pitts MD TID: [id number] RECEIPT: [id number] HL/CHAPO
[2024-09-21] MEDS: pantoprazole 40mg Tablet.DR PO SCH (19:03)
[2024-09-21 23:22] LABS: HEMATOCRIT 27.8 % (35.0-45.0); MEAN CORPUSCULAR HEMOGLOBIN 22.2 PG (27.0-31.0); MEAN CORPUSCULAR HGB CONC 32.3 g/dL (33.0-36.5); MEAN CORPUSCULAR VOLUME 68.7 FL (78-98); MEAN PLATELET VOLUME 7.8 FL (7.4-10.4); PLATELET COUNT 347 X10'3 (140-440); RED BLOOD COUNT 4.04 X10'6 (4.20-5.60); RED CELL DISTRIBUTION WIDTH 26.2 % (11.5-14.5); WHITE BLOOD COUNT 8.5 X10'3 (4.5-11.0)
[2024-09-21 23:47] LABS: NUCLEATED RED BLOOD CELLS 1 /100WBC (0-0); PLATELET ESTIMATE NORMAL; TOTAL CELLS COUNTED 100
[2024-09-21 23:48] LABS: ANISOCYTOSIS 3+; HYPOCHROMASIA 2+; MICROCYTOSIS 2+
[2024-09-22 06:00] VITALS: BP 141/69; PULSE 81; RESP 16; TEMP 98.3; O2SAT 96
[2024-09-22 06:08] LABS: HEMATOCRIT 27.2 % (35.0-45.0); HEMOGLOBIN 8.6 g/dl (12.0-16.0); MEAN CORPUSCULAR HEMOGLOBIN 21.9 PG (27.0-31.0); MEAN CORPUSCULAR HGB CONC 31.8 g/dL (33.0-36.5); MEAN PLATELET VOLUME 8.1 FL (7.4-10.4); PLATELET COUNT 348 X10'3 (140-440); RED BLOOD COUNT 3.94 X10'6 (4.20-5.60); RED CELL DISTRIBUTION WIDTH 26.3 % (11.5-14.5); WHITE BLOOD COUNT 8.7 X10'3 (4.5-11.0)
[2024-09-22 06:49] LABS: ALBUMIN 3.1 G/DL (3.4-5.0); ANION GAP 13 (8-16); BLOOD UREA NITROGEN 7 MG/DL (7-18); BUN/CREATININE RATIO 9.9 (10.0-20.0); CALCIUM 8.3 MG/DL (8.5-10.1); CHLORIDE 106 MMOL/L (99-107); CREATININE 0.71 MG/DL (0.40-0.90); GLUCOSE 80 MG/DL (70-104); MAGNESIUM 2.1 MG/DL (1.5-2.4); POTASSIUM 3.5 MMOL/L (3.5-5.1); SODIUM 138 MMOL/L (135-145); TOTAL CARBON DIOXIDE 19.2 MMOL/L (24-32); eCRCL 66 ML/MIN; eGFR 88 ML/MIN
[2024-09-22] MEDS ORDERED: pantoprazole 40mg Tablet.DR PO SCH (07:30)
[2024-09-22 08:00] VITALS: RESP 16; O2SAT 96
[2024-09-22 08:23] LABS: TOTAL CELLS COUNTED 100
[2024-09-22 08:25] LABS: ANISOCYTOSIS 3+; PLATELET ESTIMATE NORMAL
[2024-09-22 08:26] LABS: MICROCYTOSIS 2+
[2024-09-22 08:30] LABS: HYPOCHROMASIA 2+
[2024-09-22 10:00] VITALS: BP 130/78; PULSE 85; RESP 16; TEMP 98.6; O2SAT 100
[2024-09-22] MEDS ORDERED: MULT-661 PO (10:09)
[2024-09-22] MEDS ORDERED: PANT40TA54 PO (10:09)
[2024-09-22] MEDS ORDERED: VITC500T PO (10:09)
[2024-09-22] MEDS ORDERED: FERR325T28 PO (10:09)
--- NOTE | 2024-09-22 18:50 | DISCHARGE SUMMARY-Residence ---
Discharge Summary Providers to CC Resident Creating Document: ALEXEY JOHNSON, RES ~ Discharge Summary Admission Diagnosis: severe anemia , SOB , h/o blood clots Hospital Course DATE OF ADMISSION: 09/19/2024 DATE OF DISCHARGE: 09/22/2024 Chest thorax CTA on 09/19/2024 FINDINGS: No filling defect within the main left and right pulmonary arteries. The segmental and subsegmental branches are suboptimally opacified, limiting evaluation. Trachea patent. No pneumothorax. Bilateral atelectasis. There is no pulmonary a irspace consolidation. Heart normal in size. No mediastinal/ hilar lymphadenopathy. Left thyroid nodule measuring 1.8 cm. No supraclavicular, axillary lymphadenopathy. No aggressive osseous process. Kkcy-ca-[id number] thoracic degenerative disc disease IMPRESSION: 1. Suboptimal opacification of the pulmonary arteries. No large PE identified. The segmental and subsegmental branches are suboptimally opacified/ evaluated. If clinical concern persists recommend obtaining repeat CT angiogram of the chest. 2. 1.8 cm left thyroid nodule which can be further characterized with thyroid ultrasound in the nonemergent setting. Chest x-ray on 09/19/2024 Normal study Vascular ultrasound Impression: 1. No right or left femoropopliteal venous thrombosis. Echocardiogram on 09/21/2024 Conclusion Normal LV size and wall thickness. Overall systolic function is normal. LVEF is 65%. RV appears mildly dilated with normal contractility. RVSP is estimated at 60 mmHG. The left atrium size is normal. Trileaflet AV appears sclerotic without stenosis. No insufficiency. MV is thickened with mild annular thickening and no stenosis. Trace mitral regurgitation. The tricuspid valve is normal in structure. Mild tricuspid regurgitation. The pulmonary valve is normal in structure. Trace pulmonic regurgitation. There is no pericardial effusion Pelvic ultrasound on 09/20/2024 FINDINGS: UTERUS: Anteverted, measuring 9.4 cm in length. A 4.6 x 2.3 x 2.7 cm subserosal leiomyoma is seen in the anterior wall. ENDOMETRIAL STRIPE: 1.3 cm in thickness. Homogenous echotexture. No fluid in the endometrial canal. CERVIX: Few subcentimeter simple Nabothian cysts are seen. RIGH OVARY: 3.5 cm in length. Delete. Preserved vascular flow. No suspicious lesions identified. LEFT OVARY: 2.8 cm in length. Delete Preserved vascular flow. No suspicious lesions identified. CUL-DE-SAC: No significant fluid noted. OTHER: None. IMPRESSION: 1. No sonographic evidence for an acute intrapelvic process. 2. Myomatous uterus a 4.6 cm subserosal leiomyoma noted in the anterior wall. 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 GASTRITIS WITH HEMORRHAGE-BIOPSY SPECIMEN SENT. NORMAL DUODENAL BULB COLONOSCOPY ON 09/21/2024 PREPARATION OF THE COLON WAS FAIR AND PREPARATION OF THE COLON WAS POOR. STOOL IN THE ENTIRE EXAMINED COLON. INTERNAL HEMORRHOIDS. NO SPECIMENS COLLECTED. NO BLEEDING WAS FOUND BUT LIMITED EXAM. RECOMMENDED TO USE FIBER, PREP H, NO STRAIN FOLLOW UP WITH PCP FOR ARRANGING SCREENING COLONOSCOPY WITHIN ANY EAR WITH A CLEAN PREP. Consultants: Dr. Pitts, Medical gut snatcher Complications: None Condition on DC: Stable New Medications: Multivitamin W/Iron, Minerals (Multivitamins with Iron) 1 Each Tab.chew 1 TAB PO DAILY for 30 Days, #30 TAB 0 Refills Pantoprazole Sodium (Pantoprazole Sodium) 40 Mg Tablet.dr 40 MG PO BID for 30 Days, #60 TAB.SR 40mg twice daily before food(breakfast & dinner) Ascorbic Acid* (Vitamin C*) 500 Mg Tablet 500 MG PO BID@0830,1730 for 30 Days, #60 TAB Ferrous Sulfate* (Ferrous Sulfate*) 325 Mg Tablet 1 TAB PO BID for 30 Days, #60 TAB Continued Medications: Amlodipine Besylate (Amlodipine Besylate) 5 Mg Tablet 1 TAB PO DAILY Apixaban (Eliquis) 5 Mg Tablet 1 TAB PO Q12H for 30 Days, #74 TAB 0 Refills Losartan Potassium (Losartan Potassium) 100 Mg Tablet 1 TAB PO DAILY Discharge Summary: HPI at the time of admission as per admitting physician 49-year-old female patient with a past medical history of hypertension and left lower limb VTE presented to the hospital with complaints of new onset shortness of breath. She stated that she started noticing symptoms of shortness of breaths starting on Monday with increasing SOB with short distance as well. SOB is also associated with palpitations and dry cough. She states that the only thing that wakes her up in the middle of the night as a dry cough. Denies any chest tightness, chest pain, dizziness, or syncopal episodes. Also denies recent sick contacts or recent URTI symptoms. Patient has recently diagnosed with a left lower limb unprovoked VTE one week ago and was started on Eliquis. She also developed right lower limb pain that starting from the groin and extending all the way down to the foot two days ago as well due to which she has a scheduled outpatient ultrasound planned for the 24 of September. Denies any joint pains, muscle pains, joint stiffness, synovitis, new rashes, prior history of bleeding or clotting issues, prolonged or heavy menstrual cycle, miscarriages, numbness or weakness. Denies use of estrogen or other hormonal pills, no hormone IUDs as well. Denies loss of appetite or weight loss. Course in the hospital 41-year-old female admitted for shortness of breaths with severe symptomatic a nemia, iron-deficiency anemia. CBC is showing microcytic hypochromic anemia. Positive for stool occult blood and we monitored H&H regularly. Patient received 2 units of PRBC. Consulted Dr. PITTS, gut snatcher. Iron studies revealed iron-deficiency anemia and patient was started on iron supplements along with vitamin-C. Upper GI endoscopy showed LA grade D ALS reflux esoph agitis with no bleeding and gastritis is noted. biopsy was sent. In the setting of acute on Procrit left lower limb VTE we continued Eliquis 5 mg b.i.d. patient's hemoglobin is improved. Initially treated with a Protonix drip and then switched to b.i.d. IV Protonix. Colonoscopy was performed on 09/21/2024 and does not yielded much except the hemorrhoids and Dr. Chou wants to follow up with colonoscopy in one year with primary care physician and recommended to get appointment. Pelvic ultrasound reveals presence of a subserosal leiomyoma which could be the etiology behind the anemia and increased vaginal bleed and recommended for outpatient Gynecology. Patient was stable at the time of discharge. Examination at the time of discharge Vital Signs Date Time Temp Pulse Resp B/P (MAP) Pulse Ox O2 Delivery O2 Flow Rate FiO2 09/22/24 10:00 98.6 85 16 130/78 (95) 100 Room Air 09/21/24 12:09 4.0 General: Awake and Alert, no acute distress. HEENT: Conjunctiva pale, Sclera clear, Mucus Membranes moist. Resp: Unlabored. Lungs clear to auscultation bilaterally. Heart: Regular Rate and rhythm, normal S1 and S2 without murmur, rub or gallop. Abdomen: Soft and non tender no organomegaly Extremities: No cyanosis,clubbing or edema. Skin: Warm and Dry Laboratory Tests Test 09/20/24 23:16 09/21/24 04:26 09/21/24 06:38 09/21/24 16:07 White Blood Count 6.2 X10'3 7.0 X10'3 6.7 X10'3 7.0 X10'3 Red Blood Count 4.26 X10'6 4.05 X10'6 3.94 X10'6 3.79 X10'6 Hemoglobin 9.1 g/dl 8.7 g/dl 8.5 g/dl 8.3 g/dl Hematocrit 29.3 % 28.0 % 27.3 % 25.9 % Mean Corpuscular Volume 68.9 FL 69.3 FL 69.1 FL 68.4 FL Mean Corpuscular Hemoglobin 21.4 PG 21.6 PG 21.7 PG 21.9 PG Mean Corpuscular Hemoglobin Concent 31.1 g/dL 31.2 g/dL 31.3 g/dL 32.0 g/dL Red Cell Distribution Width 25.8 % 25.6 % 25.9 % 26.2 % Platelet Count 401 X10'3 380 X10'3 374 X10'3 344 X10'3 Mean Platelet Volume 8.8 FL 8.2 FL 8.0 FL 7.8 FL Neutrophils (%) (Auto) % % % % Lymphocytes (%) (Auto) % % % % Monocytes (%) (Auto) % % % % Eosinophils (%) (Auto) % % % % Basophils (%) (Auto) % % % % Neutrophils # (Auto) X10'3 X10'3 X10'3 X10'3 Lymphocytes # (Auto) X10'3 X10'3 X10'3 X10'3 Monocytes # (Auto) X10'3 X10'3 X10'3 X10'3 Eosinophils # (Auto) X10'3 X10'3 X10'3 X10'3 Basophils # (Auto) X10'3 X10'3 X10'3 X10'3 CBC Comment Differential Total Cells Counted 100 100 100 100 Neutrophils % (Manual) 69.0 % 64.0 % 62.0 % 59.0 % Lymphocytes % (Manual) 20.0 % 24.0 % 18.0 % 26.0 % Monocytes % (Manual) 8.0 % 8.0 % 13.0 % 10.0 % Eosinophils % (Manual) 3.0 % 3.0 % 6.0 % 5.0 % Platelet Estimate Normal Normal Normal Normal Red Blood Cell Morphology Perf Perf Perf Perf Hypochromasia 1+ 2+ 2+ Basophilic Stippling Anisocytosis 3+ 3+ 3+ 3+ Microcytosis 2+ 2+ 2+ 2+ Target Cells Few Few Few Few Basophils % (Manual) 1.0 % 1.0 % Sodium Level 141 MMOL/L Potassium Level 3.5 MMOL/L Chloride Level 107 MMOL/L Carbon Dioxide Level 22.2 MMOL/L Anion Gap 12 Blood Urea Nitrogen 8 MG/DL Creatinine 0.65 MG/DL Estimated GFR/1.73 m2 > 90 ML/MIN BUN/Creatinine Ratio 12.3 Glucose Level 80 MG/DL Calcium Level 8.1 MG/DL Magnesium Level 2.1 MG/DL Albumin 3.3 G/DL Chemistry Comments Nucleated Red Blood Cells 1 /100WBC 1 /100WBC Polychromasia 1+ 1+ Tear Drop Cells Few Few Elliptocytes Few Test 09/21/24 23:12 09/22/24 04:17 White Blood Count 8.5 X10'3 8.7 X10'3 Red Blood Count 4.04 X10'6 3.94 X10'6 Hemoglobin 9.0 g/dl 8.6 g/dl Hematocrit 27.8 % 27.2 % Mean Corpuscular Volume 68.7 FL 69.0 FL Mean Corpuscular Hemoglobin 22.2 PG 21.9 PG Mean Corpuscular Hemoglobin Concent 32.3 g/dL 31.8 g/dL Red Cell Distribution Width 26.2 % 26.3 % Platelet Count 347 X10'3 348 X10'3 Mean Platelet Volume 7.8 FL 8.1 FL Neutrophils (%) (Auto) % % Lymphocytes (%) (Auto) % % Monocytes (%) (Auto) % % Eosinophils (%) (Auto) % % Basophils (%) (Auto) % % Neutrophils # (Auto) X10'3 X10'3 Lymphocytes # (Auto) X10'3 X10'3 Monocytes # (Auto) X10'3 X10'3 Eosinophils # (Auto) X10'3 X10'3 Basophils # (Auto) X10'3 X10'3 CBC Comment Differential Total Cells Counted 100 100 Neutrophils % (Manual) 71.0 % 72.0 % Lymphocytes % (Manual) 20.0 % 19.0 % Monocytes % (Manual) 5.0 % 5.0 % Eosinophils % (Manual) 4.0 % 3.0 % Nucleated Red Blood Cells 1 /100WBC Platelet Estimate Normal Normal Red Blood Cell Morphology Perf Perf Hypochromasia 2+ 2+ Basophilic Stippling Anisocytosis 3+ 3+ Microcytosis 2+ 2+ Band Neutrophils % 1.0 % Sodium Level 138 MMOL/L Potassium Level 3.5 MMOL/L Chloride Level 106 MMOL/L Carbon Dioxide Level 19.2 MMOL/L Anion Gap 13 Blood Urea Nitrogen 7 MG/DL Creatinine 0.71 MG/DL Estimated GFR/1.73 m2 88 ML/MIN BUN/Creatinine Ratio 9.9 Glucose Level 80 MG/DL Calcium Level 8.3 MG/DL Magnesium Level 2.1 MG/DL Albumin 3.1 G/DL Chemistry Comments Discharge advice fup with pcp in 1 week. monitor cbc once in a week for the next 4 weeks. keep an eye on bleeding manifestation. continue pantoprazole 40mg BID before food for 1 month and then daily p.o. pantoprazole after one month month of twice daily course. If endoscopic upper GI endoscopic biopsy showed any sampling for H pylori patient needs to be on the triple drug regimen. Need to discuss with primary care physician and follow up with the report at [facility]. Recommended high-fiber diet fup with gut snatcher for colonoscopy( in 1 year). Upper GI endoscopy with biopsy specimens sent. Pending results. advised to consult Gynaecologist for leiomyoma uterus-Myomatous uterus a 4.6 cm subserosal leiomyoma. continue eliquis 5mg po bid. continue amlodipine 5mg daily, losaratan 100mg daily and monitor BP at home. continue ferrous sulfate 325mg po BID & VITAMIN C 500mg po BID( take both tablets together at same time). read adverse effects of medications prescribed. call 911 or visit er if emergency. New Medications: Multivitamin W/Iron, Minerals (Multivitamins with Iron) 1 Each Tab.chew Pantoprazole Sodium 40 Mg Tablet.dr 40mg twice daily before food(breakfast & dinner) Ascorbic Acid* (Vitamin C*) 500 Mg Tablet Ferrous Sulfate* 325 Mg Tablet Continued Medications: Amlodipine Besylate 5 Mg Tablet Apixaban (Eliquis) 5 Mg Tablet Losartan Potassium 100 Mg Tablet *Problems/Diagnosis: (1) Shortness of breath (2) Symptomatic anemia (3) Severe anemia (4) Upper GI bleed (5) Frost grade A esophagitis (6) Acute gastritis (7) Abnormal uterine bleeding (8) Thyroid nodule (9) Deep vein thrombosis Status: Acute (10) Microcytic hypochromic anemia (11) Iron deficiency anemia Total Time Spent on D/C: > 30 Minutes Date of Service: September 22, 2024 Billing Provider: MELVA MARAVILLA MD Common Visit Codes: 12458-LCP/OBS DISCH DAY >30min ALEXEY JOHNSON, JUVENAL September 22, 2024 18:40 MELVA MARAVILLA MD September 22, 2024 19:07
== END 2024-09-22 12:00 | disposition home or self-care (01) | DRG 241 ==
LOC: ER 12:13 → ED HOLD 17:51 → PCU 3S 19:16 → ORTHO 4S 09-20 14:00
PROVIDERS: ADMIT Internal Medicine; ATTEND Internal Medicine
PROC: 30233N1 Transfusion of Nonautologous Red Blood Cells into Peripheral Vein, Percutaneous Approach (ICD-10-PCS; principal; 2024-09-19)
PROC: B32T1ZZ Computerized Tomography (CT Scan) of Left Pulmonary Artery using Low Osmolar Contrast (ICD-10-PCS; 2024-09-19)
PROC: B3201ZZ Computerized Tomography (CT Scan) of Thoracic Aorta using Low Osmolar Contrast (ICD-10-PCS; 2024-09-19)
PROC: B32S1ZZ Computerized Tomography (CT Scan) of Right Pulmonary Artery using Low Osmolar Contrast (ICD-10-PCS; 2024-09-19)
PROC: 0DB78ZX Excision of Stomach, Pylorus, Via Natural or Artificial Opening Endoscopic, Diagnostic (ICD-10-PCS; 2024-09-21)
PROC: 0DJD8ZZ Inspection of Lower Intestinal Tract, Via Natural or Artificial Opening Endoscopic (ICD-10-PCS; 2024-09-21)
DX: K29.01 Acute gastritis with bleeding (principal); D25.2 Subserosal leiomyoma of uterus; I10 Essential (primary) hypertension; D50.9 Iron deficiency anemia, unspecified; E66.9 Obesity, unspecified; N93.9 Abnormal uterine and vaginal bleeding, unspecified; Z20.822 Contact with and (suspected) exposure to COVID-19; K64.8 Other hemorrhoids; E04.1 Nontoxic single thyroid nodule; K21.00 Gastro-esophageal reflux disease with esophagitis, without bleeding; Z68.27 Body mass index [BMI] 27.0-27.9, adult
CPT/HCPCS: 36415; 36430; 43239; 45378; 71045; 71275; 76856; 80048; 80053; 81025; 82272; 82728; 83540; 83550; 83735; 84439; 84443; 85007; 85025; 85379; 86885; 86900; 86901; 86920; 87081; 87811; 93306; 93970; 93976; 99152; 99153; 99285; A4620; G0378; J2250; J2470; J3010; J7030; J7040; J7050; P9016; Q9967

== ENCOUNTER 2024-09-23 11:16 | Emergency (ER) | payer MEDICAID ==
[~2024-09-23] VITALS: Ht 149.9 cm; Wt 60.6 kg
[~2024-09-23 11:16] MED LIST changes: +AMLO5TAB16 PO; +FERR325T28 PO; +LOSA100T58 PO; +MULT-661 PO; +PANT40TA54 PO; +VITC500T PO
--- NOTE | 2024-09-23 11:44 | Physician Documentation ---
History of Present Illness ~ Chief Complaint: Knee Pain Stated Complaint: PAIN/SWELLING IN KNEES Time Seen by MD: 11:24 Primary Medical Doctor: Dr Fernandes, [facility] HPI This is a very pleasant 49-year-old female recently discharged from our facility after evaluation for anemia requiring transfusion, status post colonoscopy with a negative outcome, with a known diagnosis of left-sided DVT, currently on Eliquis, presents for evaluation of bilateral knee pain right greater than left this started yesterday. She states that she woke up this morning denies bed. It is worse with ambulation. The pain is located behind her right knee. The particular palliating factors other than position of comfort. The pain is worse with range of motion as well. Denies any trauma. Compliant with her medications. Did not receive Lovenox while in the hospital but did continue her Eliquis. Denies any other symptoms such as chest pain, difficulty breathing, nausea, vomiting or diarrhea, abdominal pain. Denies any concern for tobacco, alcohol or illicit substances use ago Medication Reconciliation Allergies: Coded Allergies: No Known Allergies (Unverified , 09/23/24) Scheduled Amlodipine Besylate (Amlodipine Besylate), 1 TAB PO DAILY, (Reported) Apixaban (Eliquis), 1 TAB PO Q12H Ascorbic Acid* (Vitamin C*), 500 MG PO BID@0830,1730 Ferrous Sulfate* (Ferrous Sulfate*), 1 TAB PO BID Losartan Potassium (Losartan Potassium), 1 TAB PO DAILY, (Reported) Multivitamin W/Iron, Minerals (Multivitamins with Iron), 1 TAB PO DAILY Pantoprazole Sodium (Pantoprazole Sodium), 40 MG PO BID Past Medical History Patient History: Patient reports no known family medical history. Review of Systems ROS 10 point review of systems was performed and unless noted above in HPI is negative for acute process/complaint. Physical Exam Vital Signs: Temperature: 97.8, Source: Temporal, Heart Rate: 101, Respiratory Rate: 18, BP: 145/81, Pulse Oximetry: 100, Weight: 60.650 Physical Exam Physical examination: GENERAL: Awake, alert, oriented, GCS 15, no apparent distress, non-toxic appearing, answers questions, follows commands appropriately. HEENT: Atraumatic, normocephalic, pupils equal, extraocular muscles intact Active gross movements, sclerae anicteric, mucus membranes moist, no stridor. NECK: Midline, no JVD CARDIOVASCULAR: Good skin perfusion without evidence of pallor, mottling. PULMONARY: Nonlabored, symmetric chest rise, no audible wheezing, no accessory muscle use, no respiratory distress, speaking in full sentences. GASTROINTESTINAL: Not distended. NEUROLOGIC: Lucid with normal mental status. Normal facial symmetry. Moves all extremities symmetrically and with purpose. No truncal ataxia. Speech is fluid without evidence of dysarthria or aphasia, no focal deficits appreciated. EXTREMITIES: Acute deformities Skin: warm, dry PSYCHIATRIC: Normal affect, normal insight, normal concentration. Focused exam: [] Right knee was examined. There is no crepitus, no significant swelling, neurovascularly intact distally, range of motion is limited by pain. Pain is posterior, or but I do not appreciate any Johnson's cyst. Progress Results/Orders Results/Orders Orders - CLINT MCKEON DO Knee, Complete (09/23/24 11:37) Knee, Complete (09/23/24 ) Completed Orders - CLINT MCKEON DO Knee, Complete (09/23/24 11:37) Knee, Complete (09/23/24 ) Vital Signs 09/23/24 11:21 Temp 97.8 Pulse 101 Resp 18 B/P (MAP) 145/81 Pulse Ox 100 Medical Decision Making Findings Facility Status: ED Holds, [facility] process The plan was discussed with the patient, who demonstrates clear understanding of the plan and is in agreement with the plan unless otherwise noted in the chart. All questions have been answered, all concerns were addressed unless otherwise documented. I was available throughout their ED stay for frequent reassessment and questions. Differential Diagnoses (considered and possible or likely): [Arthritis, Johnson cyst, fracture or dislocation are less likely, DVT has been considerably but patient is already on Eliquis and has a recent ultrasound that was negative for DVT in the right lower extremity. Unlikely to represent unstable, clinically no evidence for ligamentous tear. Meniscal tear can not be ruled out but this would be nonemergent diagnosis] ??Differential Diagnoses (considered and unlikely, not requiring evaluation currently): [No evidence of neurovascular compromise at this time] MDM Data Please see HPI for the following: Independent Historians and external Records Review. Historian: [Patient] Independent Historians: ?[Record review initial] Medication Management: [Reviewed medication list] Social History and determinants: [Reviewed] Please see the body of the note for the following: Any independent interpretations of ECG, imaging studies. All vitals signs/haemodynamics, ordered tests were independently reviewed and interpreted by myself. 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 X-ray shows osteoarthritis.] Tests considered but not ordered include: [Hematologic workup has been considered but does not appear to be necessary given mechanical nature of the injury.] Social Determinants of Health Impact: Patient was evaluated in [facility], [facility] [place] healthcare due to below par ratio of patient to medical providers. [] Comorbid Conditions Impacting Present Evaluation and Care/Treatment: [History of DVT, anticoagulated] Management Discussions with other Healthcare Providers: [None] Treatment and Disposition Medication Management (Given or considered): []. See EMR for details Consideration for Hospitalization/Escalation/Deescalation of Care: Admission for observation has been considered, [however the patient is able to tolerate p.o., their symptoms are controlled, they are able to rely on oral medications, and their chief complaint/diagnosis can be managed on outpatient basis.] ?ED Course:?[Pain management] no clinical deterioration. ?Shared decision making:?[Patient is hemodynamically stable for discharge home with follow with their primary care provider. [ ] Specific and cautious return precautions provided and discussed with full understanding. Any incidental findings were also discussed and follow up recommendations given. [] All questions answered. Patient/family were able to verbalize back return precautions. Patient/family agree to plan. Copies of imaging and laboratory studies were provided.] Code status:?FULL Please see the full Electronic Medical Record for full details of nursing documentation, medications list, other records of complete past medical history and conditions, vital signs, laboratory studies, and any radiologic study interpretations by radiologists. Portions of this note were completed using [employer] dictation software and as a result there may exist minor errors in spel ling. I have reviewed elements of past family and social history and agree as included in note. I Departure Disposition: HOME / SELF CARE / HOMELESS Impression: Primary Impression: Right knee pain Condition: Improved Discharge Instructions: Acute Knee Pain, Adult, Arthritis Referrals: NO PRIMARY CARE PROVIDER (PCP) Education Educated: Patient Educated regarding: diagnosis, treatment, prognosis, need for follow up Signature Scribe Signature: No scribe Attestation: This note accurately reflects clinical decisions, work performed by myself, DO LINDA Cervantes NICHOLAS M DO September 23, 2024 11:44
--- NOTE | 2024-09-23 12:39 | RADIOLOGY REPORT ---
EXAM: DI KNEE, COMP 4 VW MIN CLINICAL INDICATION: pain, myke w ambulatoin TECHNIQUE: DI KNEE, COMP 4 VW MIN Comparison: None FINDINGS/IMPRESSION: There is no evidence of acute fracture or dislocation. Moderate left knee osteoarthritis. Chondrocalcinosis The alignment is anatomical. There is no radiopaque foreign body.
--- NOTE | 2024-09-23 12:39 | RADIOLOGY REPORT ---
EXAM: DI KNEE, COMP 4 VW MIN CLINICAL INDICATION: BILATERAL KNEE PAIN TECHNIQUE: DI KNEE, COMP 4 VW MIN Comparison: None FINDINGS/IMPRESSION: There is no evidence of acute fracture or dislocation. Moderate right knee osteoarthritis. Chondrocalcinosis. The alignment is anatomical. There is no radiopaque foreign body.
[2024-09-23 14:15] VITALS: BP 126/61; PULSE 85; RESP 18; TEMP 97.8; O2SAT 98
== END 2024-09-23 14:18 | disposition home or self-care (01) ==
LOC: ER 11:16
DX: M25.561 Pain in right knee (principal); Z79.899 Other long term (current) drug therapy; Z79.01 Long term (current) use of anticoagulants
CPT/HCPCS: 73564; 99283

== ENCOUNTER 2024-11-29 18:06 | Inpatient (IN) | payer MEDICAID ==
[~2024-11-29] VITALS: Ht 149.9 cm; Wt 60.8 kg
[~2024-11-29 18:06] MED LIST changes: -FERR325T28 PO
--- NOTE | 2024-11-29 18:18 | ELECTROCARDIOGRAPH REPORT ---
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 Jeff Ruelas Measurements Intervals [place] Rate: 100 P: 64 VT: 77 QRS: 51 QRSD: 79 T: 31 QT: 364 QTc: 470 Interpretive Statements Sinus tachycardia Low voltage, precordial leads Electronically Signed On 11-29-2024 21:39:[address] Jeff Ruelas Please click the below link to view image of tracing.
[2024-11-29 18:45] LABS: MEAN PLATELET VOLUME 8.5 FL (7.4-10.4); RED CELL DISTRIBUTION WIDTH 18.8 % (11.5-14.5)
[2024-11-29 19:02] LABS: CREATININE 0.75 MG/DL (0.40-0.90); PRO BRAIN NATRIURETIC PEPTIDE 87 PG/ML (0-125); TOTAL CARBON DIOXIDE 22.2 MMOL/L (24-32); eCRCL 63 ML/MIN; eGFR 82 ML/MIN
--- NOTE | 2024-11-29 19:06 | RADIOLOGY REPORT ---
CHEST RADIOGRAPH Indication: CP Technique: Single frontal view of the chest was obtained COMPARISON: DI CHEST,SINGLE VIEW on DOS: 09/19/24 FINDINGS: Lines and Tubes: None Lungs: Clear Pleura: No effusion. No pneumothorax. Cardiomediastinal contours: Unremarkable IMPRESSION: No abnormality demonstrated.
[2024-11-29 19:43] LABS: PLATELET ESTIMATE NORMAL
[2024-11-29 19:45] LABS: ELLIPTOCYTES FEW
[2024-11-30] VITALS (22 sets, daily range): BP systolic 98–135; BP diastolic 38–86; PULSE 73–115; RESP 10–20; TEMP 97.3–98.8; O2SAT 98–100
--- NOTE | 2024-11-30 00:02 | Physician Documentation ---
History of Present Illness ~ Chief Complaint: Chest Pain Stated Complaint: "I AM HAVING STROKE SYMPTOMS LIKE THE OTHER TIME" Time Seen by MD: 00:00 OK to notify your PCP?: Yes Primary Medical Doctor: Dr Fernandes [facility] Source: patient, RN/, RN notes reviewed, old records Mode of Arrival: POV Exam Limitations: no limitations HPI 49 year old female with bilateral DVTs presents to the emergency department for complaints of chest pain that began at 1500 today. She states that she was watering her plants at this time when she had come in to take a shower. While in the shower she states her vision went blank and she began to feel nauseous. She had then developed chest pain that presented as palpitations which caused her to cough. She also complains of a headache that radiated down her left arm. She st ates she is on Eliquis. Patient denies any cardiovascular history. Medication Reconciliation Allergies: Coded Allergies: No Known Allergies (Unverified , 11/29/24) Scheduled Apixaban (Eliquis), 1 TAB PO Q12H Ascorbic Acid* (Vitamin C*), 500 MG PO BID@0830,1730 Multivitamin W/Iron, Minerals (Multivitamins with Iron), 1 TAB PO DAILY Pantoprazole Sodium (Pantoprazole Sodium), 40 MG PO BID Discontinued Medications Amlodipine Besylate (Amlodipine Besylate), 1 TAB PO DAILY, (Reported) Losartan Potassium (Losartan Potassium), 1 TAB PO DAILY, (Reported) Pantoprazole Sodium (Pantoprazole Sodium), 40 MG PO BID Discontinued Reason: patient no longer taking Past Medical History Past Medical History: Deep Vein Thrombosis Patient History: Patient reports no known family medical history. Smoking Status: Never smoker Review of Systems All Other Systems at this time: Reviewed and Negative ROS As stated above in the HPI, otherwise all systems are reviewed and negative. Physical Exam Vital Signs: RN Vital Signs have been reviewed: Yes, Temperature: 98.9, Source: Temporal, Heart Rate: 74, Respiratory Rate: 16, BP: 107/64, Pulse Oximetry: 99, Weight: 60.800 Oxygen Flow Rate: 0 Pulse Oximetry Reflects: adequate oxygenation Physical Exam General: The patient is well developed, well nourished, nontoxic appearing and is in no acute distress. Skin: [place], warm and dry with no rashes. HEENT: Head was normocephalic and atraumatic. Eyes - pupils equal, round, reactive to light and accommodation. Extraocular movements were intact. Conjunctivae were nonicteric. Ears - bilateral tympanic membranes were normal. The mouth and oropharynx were clear with moist mucous membranes. There were no pharyngeal exudates or erythema. Neck: Supple and nontender. There was no jugular venous distention, lymphadenopathy, thyromegaly or masses. Chest: Clear to auscultation bilaterally without wheezes, rales or rhonchi. No accessory muscle use. No dullness to percussion. Heart: Rate regular and rhythmic. S1, S2. No murmurs. Palpation of the chest wall was normal. No rubs or thrills. Abdomen: Soft, nontender and nondistended. Positive bowel sounds. No guarding or rebound. No hepatosplenomegaly or palpable masses. Extremities: No cyanosis, clubbing or edema. The patient moves all extremitie s. Pulses were equal and symmetric. Neurologic: Cranial nerves II-XII were intact. Sensation was intact to light touch throughout. Motor strength was 5/5 in all four extremities. Deep tendon reflexes were intact in both upper and lower extremities. Psychologic: The patient was oriented to person, place and time. The patient demonstrated appropriate judgement and insight. Progress Progress Note 0200: The case was discussed with the hospitalist who was informed on the patient and kindly agreed to admission. Results/Orders Reviewed/noted all lab results: Yes Results/Orders Orders - JEFF RUELAS MD Cta Chest Pe (11/30/24 00:08) Page Hospitalist (11/30/24 01:37) Fill Out Med Reconciliation (11/30/24 01:37) Completed Orders - JEFF RUELAS MD Drug Screen, Urine (11/30/24 00:02) Cta Chest Pe (11/30/24 00:08) Iohexol 350mg/Ml 100ml (Omnipaque 350mg/ (11/30/24 00:47) Laboratory Tests Test 11/29/24 18:34 11/29/24 20:41 11/29/24 22:21 11/30/24 01:15 White Blood Count 10.3 Red Blood Count 2.98 L Hemoglobin 8.0 L Hematocrit 24.4 L Mean Corpuscular Volume 81.8 Mean Corpuscular Hemoglobin 26.8 L Mean Corpuscular Hemoglobin Concent 32.8 L Red Cell Distribution Width 18.8 H Platelet Count 307 Mean Platelet Volume 8.5 Neutrophils (%) (Auto) 66.8 Lymphocytes (%) (Auto) 25.1 Monocytes (%) (Auto) 5.4 Eosinophils (%) (Auto) 1.3 Basophils (%) (Auto) 1.4 H Neutrophils # (Auto) 6.8 Lymphocytes # (Auto) 2.6 Monocytes # (Auto) 0.6 Eosinophils # (Auto) 0.1 Basophils # (Auto) 0.1 CBC Comment Platelet Estimate Normal Red Blood Cell Morphology Perf Basophilic Stippling Anisocytosis 2+ Elliptocytes Few Sodium Level 136 Potassium Level 3.4 L Chloride Level 106 Carbon Dioxide Level 22.2 L Anion Gap 8 Blood Urea Nitrogen 14 Creatinine 0.75 Estimated GFR/1.73 m2 82 BUN/Creatinine Ratio 18.7 Glucose Level 109 H Calcium Level 8.2 L Troponin I High Sensitivity 16 18 16 Pro-B-Type Natriuretic Peptide 87 Albumin 3.5 Chemistry Comments Ethyl Alcohol Level < 10 Troponin I High Sens Percent Delta 12 11 Troponin I Hi Sens Absolute Change 2 -2 Urine Specimen Description Cln catch midstream Urine Color Red Urine Clarity Cloudy Urine pH Urine Specific [place] Urine Protein Urine Glucose (UA) Urine Ketones Urine Occult Blood Urine Nitrite Urine Bilirubin Urine Urobilinogen Urine Leukocyte Esterase Urine RBC Tntc Urine WBC 5-10 H Urine Squamous Epithelial Cells Few Urine Bacteria Few Urine Culture Indicated Indicated Volume Urine Centrifuged 10 ml Urine Comment See note Urine Opiates Screen Negative Urine Methadone Screen Negative Urine Fentanyl Screen Negative Urine Barbiturates Screen Negative Urine Phencyclidine Screen Negative Urine Amphetamines Screen Negative Urine Benzodiazepines Screen Negative Urine Cocaine Screen Negative Urine Cannabinoids Screen Negative Drug Screen Comment Re-Evaluation Re-Evaluation : Re-Evaluation: Improved Progress Patient presents with chest pain history of DVTs concern for pulmonary embolism. Patient's laboratory work was obtained patient is WBCs 10.3 hemoglobin 8 and 24 for hematocrit bit low. Chemistries shows slight hypokalemia with a potassium of 3.4 metabolic acidosis of 22.2 calcium low at 8.2. Troponins negative. Tox screen alcohol are within normal limits. Urinalysis shows TNTC RBCs. Patient was placed on a monitor. CT angiogram was ordered to rule out pulmonary embolism. Fortunately there was no signs of pulmonary embolism. He has the chest pain high-risk patient hospitalist was consulted for evaluation of the patient's chest pain. Patient was then admitted to the PCU. Continuous satellite project site monitor interpretation shows sinus tachycardia heart rate 100s, abnormal, my interpretation. Pulse oximetry monitor interpretation shows normal oxygenation at 99% room air, normal, my interpretation. 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 Jeff Ruelas Measurements Intervals [place] Rate: 100 P: 64 NE: 77 QRS: 51 QRSD: 79 T: 31 QT: 364 QTc: 470 Interpretive Statements Sinus tachycardia Low voltage, precordial leads Electronically Signed On 11-29-2024 21:39:[address] Jeff Ruelas Please click the below link to view image of tracing. EKG Date and Time:11/29/241815 Electronically Signed by: JEFF RUELAS MD Date and Time: 11/29/242138 Chest X-Ray : Additional Comments CHEST RADIOGRAPH Indication: CP Technique: Single frontal view of the chest was obtained COMPARISON: DI CHEST,SINGLE VIEW on DOS: 09/19/24 FINDINGS: Lines and Tubes: None Lungs: Clear Pleura: No effusion. No pneumothorax. Cardiomediastinal contours: Unremarkable IMPRESSION: No abnormality demonstrated. Electronically Signed by:MARK DUQUE MD Date & Time: 11/29/[address] : Impression CTA Chest with intravenous contrast INDICATION: CHEST PAIN COMPARISON: CT CTA CHEST PE W/ IV CONTRAST on DOS: 09/19/24 TECHNIQUE: Multidetector spiral CTA of the chest was performed of the chest with intravenous contrast. PULMONARY ANGIOGRAPHY PROTOCOL was utilized using a bolus- tracking technique centered on the main pulmonary artery. Axial, coronal and sagittal multiplanar and MIP reformats were performed. Radiation Dose : 1. Chest: CTDI volume is mGy. Dose-length product is mGy*cm The dose indicators for CT are the volume Computed Tomography (CT) Dose Index (CTDIvol) and the Dose Length Product (DLP), and are measured in units of mGy and mGy-cm, respectively. These indicators are not patient dose, but values generated from the CT scanner acquisition factors. The report includes radiation exposure data for exposures received during this examination. Findings: Pulmonary artery: No evidence of pulmonary embolism. Lower neck: Unremarkable. Lungs: No abnormality demonstrated. Pleura: No pleural effusion or pneumothorax. Heart: Normal heart size. No pericardial effusion. Thoracic aorta: No abnormality demonstrated. Mediastinum / Lymph Nodes: No abnormality demonstrated. No lymphadenopathy. Musculoskeletal: No acute osseous abnormality. Soft tissues: Unremarkable. Upper abdomen: Unremarkable. IMPRESSION: No pulmonary embolism. No acute thoracic finding. Electronically Signed by:MARK DUQUE MD Date & Time: 11/30/24 0123 Heart Score: Heart Score Response (Comments) Value History Highly Suspicious 2 EKG Repolarization Disturb 1 Age 45-64 1 Risk Factors 1 or 2 risk factors 1 Troponin Normal limit 0 Total 5 Medical Decision Making Additional info obtained from: old records Differential Dx:Considerations: Include: angina, aortic dissection, chest wall pain, cholelithiasis, CHF, costochondritis, gastritis, myocardial infarction, pericarditis, pleuritis, pancreatitis, pneumonia, pneumothorax, pulmonary embolus Departure Time of Disposition: 02:00 Disposition: 09 ADMITTED INPATIENT Admitted to Inpatient Unit: yes, to hospitalist Admission Level of Care: PCU with Tele Impression: Primary Impression: Chest pain Qualified Codes: R07.9 - Chest pain, unspecified Additional Impressions: Palpitations Dyspnea Qualified Codes: R06.09 - Other forms of dyspnea Abnormal EKG Condition: Guarded Referrals: NO PRIMARY CARE PROVIDER (PCP) Prescriptions Pantoprazole Sodium (Pantoprazole Sodium) 40 Mg Tablet. 40 MG PO BID for 30 Days, #60 TAB.SR Prov: KEV DELACRUZ, RES 12/03/24 Education Educated: Patient Educated regarding: diagnosis, treatment, prognosis, need for follow up Signature Scribe Signature: Scribed for Jeff Ruelas MD by Ayse Gutierrez . 11/30/24 00:17 Attestation: The note accurately reflects work and decisions made by me.Jeff Ruelas MD 11/30/24 00:02 JEFF RUELAS MD Nov 30, 2024 00:02 AYSE MILAN Nov 30, 2024 00:17
[2024-11-30 00:21] LABS: ETHANOL < 10 MG/DL (<10)
--- NOTE | 2024-11-30 01:26 | RADIOLOGY REPORT ---
CTA Chest with intravenous contrast INDICATION: CHEST PAIN COMPARISON: CT CTA CHEST PE W/ IV CONTRAST on DOS: 09/19/24 TECHNIQUE: Multidetector spiral CTA of the chest was performed of the chest with intravenous contrast . PULMONARY ANGIOGRAPHY PROTOCOL was utilized using a bolus-tracking technique centered on the main p ulmonary artery. Axial, coronal and sagittal multiplanar and MIP reformats were performed. Radiation Dose : 1. Chest: CTDI volume is mGy. Dose-length product is mGy*cm The dose indicators for CT are the volume Computed Tomography (CT) Dose Index (CTDIvol) and the Dose Length Product (DLP), and are measured in units of mGy and mGy-cm, respectively. These indicators are not patient dose, but values generated from the CT scanner acquisition factors. The report includes radiation exposure data for exposures received during this examination. Findings: Pulmonary artery: No evidence of pulmonary embolism. Lower neck: Unremarkable. Lungs: No abnormality demonstrated. Pleura: No pleural effusion or pneumothorax. Heart: Normal heart size. No pericardial effusion. Thoracic aorta: No abnormality demonstrated. Mediastinum / Lymph Nodes: No abnormality demonstrated. No lymphadenopathy. Musculoskeletal: No acute osseous abnormality. Soft tissues: Unremarkable. Upper abdomen: Unremarkable. IMPRESSION: No pulmonary embolism. No acute thoracic finding.
[2024-11-30 02:29] LABS: URINE AMPHETAMINE SCREEN NEGATIVE (Neg); URINE BARBITUATE SCREEN NEGATIVE (Neg); URINE BENZODIAZEPINES SCREEN NEGATIVE (Neg); URINE CANNABINOID SCREEN NEGATIVE (Neg); URINE COCAINE SCREEN NEGATIVE (Neg); URINE METHADONE SCREEN NEGATIVE (Neg); URINE OPIATE SCREEN NEGATIVE (Neg); URINE PHENCYCLIDINE SCREEN NEGATIVE (Neg)
[2024-11-30] MEDS ORDERED: mag hydrox/Alum hydrox/simeth 30ml oral suspension PO PRN (03:20)
[2024-11-30] MEDS ORDERED: magnesium sulf-water 4G/100mL 100 ML IV PRN (03:20)
[2024-11-30] MEDS ORDERED: potassium Cl 20 mEq SR tablet PO PRN (03:20)
[2024-11-30] MEDS ORDERED: magnesium sulf-water 2g/50mL 50 ML IV PRN (03:20)
[2024-11-30] MEDS ORDERED: ondansetron/PF 4mg/2ml inj IV PRN (03:20)
[2024-11-30] MEDS ORDERED: potassium Cl 40MEQ/1/2NS 520ml 520 ML IV PRN (03:20)
[2024-11-30] MEDS ORDERED: magnesium hydroxide 30ml (MOM) UD suspension PO PRN (03:20)
[2024-11-30] MEDS ORDERED: magnesium Cl slow-release 64mg tablet PO PRN (03:20)
--- NOTE | 2024-11-30 03:39 | HISTORY AND PHYSICAL-Residence ---
History & Physical Providers to CC Resident Creating Document: CALVIN GIBSON, RES CC: ANDREEA OJEDA MD ~ History of Present Illness Primary Medical Doctor: Dr Fernandes, [facility] Reason for Admit\Complaint: Blurry vision History of Present Illness A 43-year-old female with past medical history of HTN, DVT presented to the ED with blurring vision this evening. Patient started to have nausea and blurry vision with shortness of breaths after watering plants. Post that patient is started to have chest pain left-sided 10/10 in severity, sharp in character, with no radiation, no variation with deep breaths. No aggravating or relieving factors. Patient stated that her burring of vision started to resolve after she bathed with cold water. Patient also had difficulty in speech with no focal deficits like weakness in her upper or lower extremities. Patient denies loss of consciousness. Prior to all of this patient's started to have a headache 10/10 in severity squeezing in character, radiating to the arm and to the shoulder with no aggravating or relieving factors. Allergies: Coded Allergies: No Known Allergies (Unverified , 11/29/24) Home Medications Home Medications Active Vitamin C* (Ascorbic Acid) 500 Mg Tablet 500 Mg PO BID@0830,1730 30 Days Multivitamins with Iron (Multivitamin W/Iron, Minerals) 1 Each Tab.chew 1 Tab PO DAILY 30 Days Pantoprazole Sodium 40 Mg Tablet.dr 40 Mg PO BID 30 Days 40mg twice daily before food(breakfast & dinner) Eliquis (Apixaban) 5 Mg Tablet 1 Tab PO Q12H 30 Days Reported Losartan Potassium 100 Mg Tablet 1 Tab PO DAILY Amlodipine Besylate 5 Mg Tablet 1 Tab PO DAILY Past Medical History Past Medical History HTN Anemia DVT Past Surgical History Surgical History Comment None Family History Family History: Patient reports no known family medical history. Past Social History Social History Comment Denies smoking cigarettes, consuming alcohol, marijuana, illicit drugs PCP: [facility] Lives at home ROS ROS All other systems reviewed in full and negative except for the pertinent positives mentioned in the HPI Exam Vitals: Vital Signs Date Time Temp Pulse Resp B/P (MAP) Pulse Ox O2 Delivery O2 Flow Rate FiO2 11/29/24 23:28 74 16 107/64 (78) 99 11/29/24 18:09 98.9 0 General: General: Alert, awake, oriented, not in acute distress HEENT: PERRLA, EOMI, no icterus, pallor, lymphadenopathy, carotid bruit Respiratory system: Bilateral vesicular breath sounds heard, no adventitious breath sounds CVS: S1-S2 heard, no murmurs/rubs/gallop GI: Soft, nontender, no organomegaly, no guarding/rigidity, bowel sounds present Neuro: Power in bilateral upper and lower extremities 4/5, no sensory deficits, coordination intact, speech intact, no deviation of the mouth Extremities: No edema cyanosis clubbing/deformities Skin: Warm and dry Diagnostic Data Last Recorded Lab Results: 11/29/24183311/29/241833 Advance Care Planning Advanced Care plannin - 30 Minutes (I spent 20 minutes discussing various resuscitative measures and the patient decided to be full code) Additional Plan Assessment: A 49-year-old female with past medical history of HTN and anemia presented to the ED in view of blurriness of vision and chest pain. Patient is admitted for the evaluation management of TIA and chest pain workup. Plan: TIA Follow up with CT head, CTA head, lipid panel and A1c Echo in Sep, 2024: EF: 65%, RVSP: 60 mmHg - not sure why RVSP will be that elevated ---I have suggested that another echo is done at this time and Cardiology should see her and consider right heart cath as well. we will get a CT scan of the chest as well with contrast to image her pulmonary vasculature. U tox negative Orthostatic vitals IV fluids at 100 cc/hour Continue Aspirin 81 mg Tele neurology consult Neuro checks Continue to monitor telemetry Microcytic anemia Patient has low hemoglobin in the previous admissions Follow up with stool occult, iron studies Supplement with iron Chest pain CAD, workup PE evaluation Cor pulmonale - not sure why in a 49 yr old female - CT chest will be helpful to further evaluate HEART Score: 1 Patient complains of shortness of breaths which might have been secondary to anemia or elevated right heart pressures Patient has elevated RVSP in the last Echo, unknown reasons for right-sided heart failure Negative troponins, no EKG changes Lexiscan in a.m. Continue aspirin 81 mg Evaluate for pulmonary hypertension HTN Did not start on any antihypertensives Patient has soft blood pressure Monitor hemodynamics closely History of DVT Continue Eliquis 5 mg Unknown timeline of DVT, re-evaluate if it was provoked or unprovoked will see what CT shows at this time - any residuals etc Code status: Full code Diet: NPO after midnight Anticoagulation: Aspirin Disposition: Admit to PCU, follow up with CT head, Lisa in a.m. suggest cardiology evaluation as well as pulmonary eval if possible Calvin Gibson MD Internal Medicine, PGY 2 I saw and discussed case with the resident team and I made edits to the note above as well. Agree with assessment and plan as documented Date of Service: Nov 30, 2024 Billing Provider: ANDREEA OJEDA MD, SIVA, RES Nov 30, 2024 03:39 ANDREEA OJEDA MD Nov 30, 2024 07:56
[2024-11-30 03:47] LABS: UA COLLECTION TYPE CLN CATCH MIDSTREAM
[2024-11-30] MEDS: potassium Cl 20 mEq SR tablet PO PRN (03:48)
[2024-11-30] MEDS: normal saline 1000ml 1,000 ML IV SCH ×2 (03:49→16:15)
[2024-11-30] MEDS ORDERED: metoprolol tartrate 1mg/ml inj IV PRN (03:50)
[2024-11-30 03:58] LABS: SQUAMOUS EPITHELIAL CELL,UR FEW /LPF (FEW)
[2024-11-30 07:37] LABS: % IRON SATURATION 2 % (11-46)
[2024-11-30] MEDS: K and/or MAG REPLACEMENT MC SCH (08:00)
[2024-11-30] MEDS ORDERED: non-formulary drug (Losartan Potassium 1 TAB) PO SCH (08:00)
[2024-11-30] MEDS: aminophylline 250mg/10ml inj. IV PRN (09:44)
[2024-11-30] MEDS: regadenoson 0.4mg/5ml syringe IV PRN (09:44)
--- NOTE | 2024-11-30 10:36 | RADIOLOGY REPORT ---
Reason for study/Clinical History: CAD workup Comparison Study: None Myocardial Perfusion Study with SPECT Technique: The patient received an intravenous injection of 8 mCi of technetium-99m Sestamibi while at rest. After a short delay, SPECT tomographic images of the heart were obtained. The patient the n went to the stress lab where they received an intravenous Lexiscan utilizing standard protocol. 34 mCi of technetium-99m Sestamibi was injected intravenously immediately after the start of the infu hoang. Gated SPECT tomographic images of the heart were acquired and processed. Findings: Rotating planar images show no significant attenuation artifact. The left ventricular size is within normal limits. Stress tomographic images demonstrate normal perfusion. Resting tomographic images demonstrate a similar pattern. Gated portion of the study shows normal wall motion and myocardial thickening. The left ventricular ejection fraction is 66%. (normal greater than 50%) Impression: 1. Normal left ventricular size, wall motion, and function, without evidence of infarction or of myoc ardium at ischemic risk. The left ventricular ejection fraction is 66%.
[2024-11-30] MEDS: iron sucrose complex injection 200 MG in normal saline 100ml IV soln 100 ML IV SCH (11:54)
[2024-11-30] MEDS: aspirin 81mg, enteric-coated 1 TAB TABLET.DR PO SCH (11:55)
[2024-11-30] MEDS: docusate sod 100mg capsule PO SCH (11:57)
[2024-11-30] MEDS: HYDROcodone/acetaminophen 5mg/325mg tablet PO PRN (12:33)
--- NOTE | 2024-11-30 12:41 | RADIOLOGY REPORT ---
EXAM: CT CT HEAD INDICATION: tia TECHNIQUE: CT of the head without intravenous contrast. Radiation Dose : 1. Head: CT Dose: CTDI volume is 58 mGy. Dose-length product is 980 mGy*cm The dose indicators for CT are the volume Computed Tomography (CT) Dose Index (CTDIvol) and the Dose Length Product (DLP), and are measured in units of mGy and mGy-cm, respectively. These indicators are not patient dose, but values generated from the CT scanner acquisition factors. The report includes radiation exposure data for exposures received during this examination. COMPARISON: MR MRI HEAD on DOS: 08/16/23 FINDINGS: There is no evidence of acute intracranial hemorrhage, extra-axial collection, mass effect, midline s hift, herniation or hydrocephalus. 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 The tong-white differentiation is intact. The visualized paranasal sinuses and mastoid air cells are clear. The surrounding soft tissues and osseous structures are unremarkable. IMPRESSION: No acute intracranial abnormality. Radiation optimization: All CT scans at this facility use at least one of these dose optimization elaine hniques: automated exposure control mA and/or kV adjustment per patient size (includes targeted exam s where dose is matched to clinical indication) or iterative reconstruction.
--- NOTE | 2024-11-30 12:59 | RADIOLOGY REPORT ---
CT CTA NECK/HEAD INDICATION: TIA EXAM DATE: 11/30/2024 10:35 AM COMPARISON: 11/30/24 RADIATION DOSE: CTDIvol: 12 mGy, DLP: 439 mGy*cm PROCEDURE: CT angiogram images were obtained of the head and neck. Coronal and sagittal reformatted i mages were created as well as 3D and/or MIP reconstructions. All CT scans at this medical facility are performed using dose modulation techniques as appropriate t o a performed exam including the following: Automated exposure control was utilized; adjustment of th e MA and/or KV according to patient size; and use of iterative reconstruction technique. FINDINGS: Head: Please see same day CT head for further details. On the CT angiographic images, the internal carotid arteries are normal in caliber from the skull bas e to their bifurcations. The anterior and middle cerebral arteries and their branches appear normal. The anterior communicating artery appears normal. The right posterior communicating artery is normal. The left posterior communicating artery is not well seen and may be absent or hypoplastic. The verte bral arteries are codominant. There is continuation of the right DECORATOR HAND. The vertebral, basilar, s uperior cerebellar, and posterior cerebral arteries are normal in caliber. No aneurysm, arteriovenous malformation, or stenosis is visible. Neck: The common carotid, internal carotid, external carotid, and vertebral arteries are normal in caliber. The vertebral arteries are codominant. There is no evidence of contrast extravasation, filling defec ts, stenosis, or dissection. The pharynx and airway are normal. 1.4 cm right thyroid nodule. The submandibular, and parotid glands appear normal. No lymphadenopathy is seen. IMPRESSION: No acute abnormal CT angiographic findings of the head and neck.
[2024-12-01] VITALS (18 sets, daily range): BP systolic 99–141; BP diastolic 44–80; PULSE 70–85; RESP 11–21; TEMP 97–98.5; O2SAT 94–99
--- NOTE | 2024-12-01 00:07 | CONSULTATION REPORT ---
Consult Providers to CC ~ History of Present Illness Reason for Admit\Complaint: stroke like symptoms History of Present Illness [facility] Note # Demographics Consult Type: General Neurology Patient Location: Inpatient First Name: Nory Last Name: Braulio Date of : 1975 Age: 49 Gender: Female Facility: [facility] Time of Initial Page (): 11/30/2024 23:54 Time of Return Call (): 11/30/2024 23:55 # HPI History: 49 year old female with PMH of prior DVT on Eliquis, that I was requested to evaluate for acute stroke. The patient came in with symptoms of TIA, specifically with blurry vision. This went back to normal within a few minutes. She also had slight slurring of speech. This also improved within a few minutes. In the ED CT and CTA were saranya At the time of my evaluation she is having chest pain and rapid heart beat. # Scores Time of exam and NIHSS (): 12/01/2024 00:00 Level of Consciousness 1a: [0] = Alert; keenly responsive LOC Questions 1b: [0] = Answers both questions correctly LOC Commands 1c: [0] = Performs both tasks correctly Best Gaze 2: [0] = Normal Visual 3: [0] = No visual loss Facial Palsy 4: [0] = Normal symmetrical movements Motor Arm Left 5a: [0] = No drift Motor Arm Right 5b: [0] = No drift Motor Leg Left 6a: [0] = No drift Motor Leg Right 6b: [0] = No drift Limb Ataxia 7: [0] = Absent Sensory 8: [0] = Normal Best Language 9: [0] = No aphasia Dysarthria 10: [0] = Normal Extinction and Inattention 11: [0] = No abnormality NIHSS Total: 0 # ROS Neurologic: - see HPI # Data Time Head CT personally read by me (): 12/01/2024 00:[address]: - no bleed CTA Head: no large vessel occlusion CTA Neck: patent vessels # Assessment Impression: - Transient Ischemic Attack Given the other systemic symptoms, specifically with chest pain and rapid heart beat, I am most suspicious this may represent anxiety or a panic attack rather than a TIA. But I think it is reasonable to proceed with further imaging and an echocardiogram to rule out an obvious process. # Plan Thrombolytic/Intervention: NOT IV Thrombolysis or IA Intervention candidate Thrombolytic Exclusion (< 3 hour window): - NIHSS = 0 Intraarterial Exclusion: - no large vessel occlusion (LVO) Imaging: (urgency: routine): - MRI Brain without contrast Therapy/Evaluation: TTE Medication: continue Eliquis Other: - If patient has any neurological deterioration please call me back immediately Additional Recommendations: SUMMARY: == as above --> MRI Brain without contrast, echocardiogram == most likely panic vs. anxiety == continue anticoagulation Disposition: continue admission # Logistics Attestation of consult completion: The patient is located at: [facility]. Facility staff participated in the visit. I performed this telemedicine visit from my offsite office utilizing interactive 2 way audio and visual telecommunication technology. Consent: Verbal consent was obtained from the patient and/or family for this encounter. Total time spent in telemedicine encounter: I spent 20 minutes reviewing clinical data and/or imaging, obtaining history, examining the patient, communicating with the onsite care team, and in preparation of this report. Critical Care time: 15 minutes of this encounter were critical care time. Due to a high probability of clinically significant, life-threatening neurologic deterioration, the patient required my highest level of preparedness to intervene emergently. I spent this critical care time managing the patient in conjunction with on-site providers who requested my consultation. In addition to the above, this critical care time included recommendation and review of studies, including imaging; arranging an urgent treatment and management plan with on-site providers; evaluation of patient's response to treatment; and documentation. This critical care time was performed to assess and manage the high probability of imminent, life-threatening deterioration that could result in neurologic catastrophe. # Demographics First Name: Nory Last Name: Braulio Facility: [facility] Allergies: Coded Allergies: No Known Allergies (Unverified , 11/29/24) Home Medications Home Medications Active Vitamin C* (Ascorbic Acid) 500 Mg Tablet 500 Mg PO BID@0830,1730 30 Days Multivitamins with Iron (Multivitamin W/Iron, Minerals) 1 Each Tab.chew 1 Tab PO DAILY 30 Days Eliquis (Apixaban) 5 Mg Tablet 1 Tab PO Q12H 30 Days Reported Losartan Potassium 100 Mg Tablet 1 Tab PO DAILY Amlodipine Besylate 5 Mg Tablet 1 Tab PO DAILY Family History Family History: Patient reports no known family medical history. Exam Vitals: Vital Signs Date Time Temp Pulse Resp B/P (MAP) Pulse Ox O2 Delivery O2 Flow Rate FiO2 11/30/24 22:00 97.7 78 18 98/47 (64) 98 Room Air 11/29/24 18:09 0 Diagnostic Data Last Recorded Lab Results: 11/29/24 1834 11/30/24 0559 NAKUL NAVA MD Dec 01, 2024 00:07
[2024-12-01 06:37] LABS: MEAN PLATELET VOLUME 8.5 FL (7.4-10.4); RED CELL DISTRIBUTION WIDTH 18.7 % (11.5-14.5)
[2024-12-01 07:18] LABS: CHOL/HDL RATIO 4.0 (0.00-4.99); CREATININE 0.65 MG/DL (0.40-0.90); LDL CHOLESTEROL 100 MG/DL (50-100); TOTAL CARBON DIOXIDE 20.4 MMOL/L (24-32); eCRCL 72 ML/MIN; eGFR > 90 ML/MIN
--- NOTE | 2024-12-01 17:46 | PROGRESS NOTE- Residence ---
Progress Note - Resident Providers to CC Resident Creating Document: MARUTAJJONATHAN, JUVENAL ~ Antibiotic Timeout Antibiotic Ordered?: No Subjective Seen and examined at the bedside today. Her hemoglobin dropped to 6.1, 2 units of PRBC ordered. Reports lightheadedness on standing up. Completed three month course of Eliquis for DVT, she was told to discontinue in March. Explained to her that the blood thinner might be the cause of her anemia. Also explained to her the risk of stopping the anticoagulant. Patient wants to continue the Eliquis. She had an EGD and colonoscopy done in September which did not show any significant findings. Consulted Dr. Gabriel for possible repeat EGD. Objective Vital Signs Date Time Temp Pulse Resp B/P (MAP) Pulse Ox O2 Delivery O2 Flow Rate FiO2 12/01/24 16:50 98.0 77 11 141/80 12/01/24 15:00 99 Room Air 11/29/24 18:09 0 Result Diagram: 12/01/24202312/01/24 0617 General: Alert, awake, oriented, not in acute distress HEENT: PERRLA, EOMI, no icterus, pallor, lymphadenopathy, carotid bruit Respiratory system: Bilateral vesicular breath sounds heard, no adventitious breath sounds CVS: S1-S2 heard, no murmurs/rubs/gallop GI: Soft, nontender, no organomegaly, no guarding/rigidity, bowel sounds present Neuro: Power in bilateral upper and lower extremities 4/5, no sensory deficits, coordination intact, speech intact, no deviation of the mouth Extremities: No edema cyanosis clubbing/deformities Skin: Warm and dry Plan Plan Assessment: A 49-year-old female with past medical history of HTN, DVT and anemia presented to the ED in view of blurriness of vision and chest pain. Patient is admitted for the evaluation management of TIA and chest pain workup. Admitted for possible TIA and syncope, CTA head, CTA head and neck, lucho negative. Hemoglobin 6.1, 2 units transfused. iron-deficiency anemia, EGD and colonoscopy done in September no significant findings, Dr. Gabriel consulted for repeat EGD, please call her again tomorrow. History of DVT,, unknown cause, on Eliquis 5 mg b.i.d., held for possible EGD, restart if no EGD. Plan: Presyncope TIA-ruled out CT head, CTA head and neck negative Echo in Sep, 2024: EF: 65%, RVSP: 60 mmHg U tox negative Orthostatic vitals positive Findings and telemetry. IV fluids at 100 cc/hour Continue Aspirin 81 mg Tele neurology consult, does not think it is a TIA but recommended MRI. Neuro checks Continue to monitor telemetry Presyncope could be secondary to anemia. Microcytic anemia Patient has low hemoglobin in the previous admissions Follow up with stool occult, iron studies Supplement with iron 12/01/2024 Hemoglobin today 6.1 Ordered 2 units of PRBC Iron studies showed low iron, low ferritin, high TIBC On IV Venofer EGD and colonoscopy done in September showed no significant findings Consulted Dr. Gabriel for repeat EGD, please call her again tomorrow morning. Chest pain CAD, workup-negative PE evaluation HEART Score: 1 Patient complains of shortness of breaths which might have been secondary to anemia Patient has elevated RVSP in the last Echo, unknown reasons for right-sided heart failure Negative troponins, no EKG changes Lexiscan negative. CTA chest negative for pulmonary embolism Continue aspirin 81 mg Evaluate for pulmonary hypertension HTN Did not start on any antihypertensives Patient has soft blood pressure Monitor hemodynamics closely History of DVT Eliquis 5 mg renewed, holding evening dose for possible EGD tomorrow. Unknown timeline of DVT, cause of DVT in unknown Code status: Full code Diet: NPO after midnight Anticoagulation: Aspirin Disposition: Call Dr. Gabriel tomorrow for possible EGD. Held Eliquis, if no EGD continue Eliquis. Discharged home on iron supplementation Shadi hannon M.D PGY2 Addendum presentation symptoms likely related to gib; egd; protonix; discussed with pt risk vs benefits for anticoagulation, as her gib started after start of anticoagulation, decided to continue with it Date of Service: Dec 01, 2024 Billing Provider: RAHUL MICHEL MD Common Visit Codes: [id number] INP/OBS CARE(HIGH) SHADI HANNON, JUVENAL Dec 01, 2024 17:46 RAHUL MICHEL MD Dec 01, 2024 22:06
[2024-12-01 20:57] LABS: MEAN PLATELET VOLUME 9.2 FL (7.4-10.4); RED CELL DISTRIBUTION WIDTH 17.5 % (11.5-14.5)
[2024-12-02] VITALS (18 sets, daily range): BP systolic 97–136; BP diastolic 52–81; PULSE 66–89; RESP 14–20; TEMP 97.2–98.6; O2SAT 95–99
[2024-12-02 06:36] LABS: MEAN PLATELET VOLUME 8.6 FL (7.4-10.4); RED CELL DISTRIBUTION WIDTH 17.2 % (11.5-14.5)
[2024-12-02 07:00] LABS: CREATININE 0.64 MG/DL (0.40-0.90); TOTAL CARBON DIOXIDE 21.0 MMOL/L (24-32); eCRCL 73 ML/MIN; eGFR > 90 ML/MIN
--- NOTE | 2024-12-02 10:01 | CONSULTATION REPORT - RESIDENT ---
Consult Providers to CC Resident Creating Document: JAMALRajeshLUIS ANTONIO RES History of Present Illness Reason for Admit\Complaint: Dizziness History of Present Illness This is a 49-year-old female with past medical history of hypertension, deep vein thrombosis (DVT), and chronic microcytic anemia who is currently admitted for evaluation of transient neurologic symptoms and symptomatic anemia. She presented with blurry vision, chest pain, and presyncope. Her hemoglobin was found to be 6.1 g/dL on 12/01/24, for which she received 2 units of PRBC. She reports lightheadedness on standing but is otherwise stable.She completed a 3- month course of apixaban for an unprovoked DVT, which she was advised to discontinue in March. However, she wishes to remain on anticoagulation. There is concern that the anticoagulation may be contributing to ongoing blood loss. Notably, she underwent an EGD and colonoscopy in September 2024, which were both reportedly normalno ulcers, erosions, AVMs, polyps, or signs of bleeding. Stool guaiac was negative. Despite this, she has persistent iron-deficiency anemia with current iron panel revealing: Iron: 8 mcg/dL TIBC: 422 mcg/dL Ferritin: 7 ng/mL Transferrin saturation: 2% She has no hematochezia or melena. No history of menorrhagia. No weight loss or change in bowel habits. No NSAID use. Denies any overt GI symptoms. Allergies: Coded Allergies: No Known Allergies (Unverified , 11/29/24) Home Medications Home Medications Active Vitamin C* (Ascorbic Acid) 500 Mg Tablet 500 Mg PO BID@0830,1730 30 Days Multivitamins with Iron (Multivitamin W/Iron, Minerals) 1 Each Tab.chew 1 Tab PO DAILY 30 Days Eliquis (Apixaban) 5 Mg Tablet 1 Tab PO Q12H 30 Days Reported Losartan Potassium 100 Mg Tablet 1 Tab PO DAILY Amlodipine Besylate 5 Mg Tablet 1 Tab PO DAILY Past Medical History Past Medical History Hypertension DVT TIA Past Surgical History Surgical History Comment None Family History Family History: Patient reports no known family medical history. Past Social History Social History Comment Denies smoking, alcohol and illicit drug use ROS ROS Reviewed in full, pertinent positive per HPI Exam Vitals: Vital Signs Date Time Temp Pulse Resp B/P (MAP) Pulse Ox O2 Delivery O2 Flow Rate FiO2 12/02/24 08:37 78 12/02/24 07:00 98.2 15 132/67 (88) 99 Room Air 11/29/24 18:09 0 General: General: Alert, awake, oriented, not in acute distress HEENT: PERRLA, EOMI, no icterus, pallor, lymphadenopathy, carotid bruit Respiratory system: Bilateral vesicular breath sounds heard, no adventitious breath sounds CVS: S1-S2 heard, no murmurs/rubs/gallop GI: Soft, nontender, no organomegaly, no guarding/rigidity, bowel sounds present Neuro: Power in bilateral upper and lower extremities 4/5, no sensory deficits, coordination intact, speech intact, no deviation of the mouth Extremities: No edema cyanosis clubbing/deformities Skin: Warm and dry Diagnostic Data Last Recorded Lab Results: 12/02/2460412/02/24604 Additional Plan 1. Severe Iron-Deficiency Anemia (CYDNEY): Severe microcytic anemia with evidence of iron deficiency (low iron, low ferritin, high TIBC, very low transferrin saturation). Prior EGD and colonoscopy (September 2024) were unremarkable. Possible causes include: Occult gastrointestinal blood loss (intermittent or from missed lesions like small angioectasias, erosions, or ulcers). Iron malabsorption (less likely in the absence of GI symptoms, but celiac disease or other small bowel pathology should be considered). Non-GI sources unlikely given negative gynecologic complains. Plan: Repeat EGD today to reassess for any missed or evolving upper GI source of bleeding, especially given the recent drop in hemoglobin and ongoing anticoagulation. Current presentation with significant anemia may represent intermittent GI blood loss. Repeat EGD to reassess and avoid progression to symptomatic anemia. EGD done today showed gastritis with a hemorrhage and normal duodenal bulb and 2nd portion of the duodenum; 2nd portion of the duodenum biopsied for possible celiac disease Capsule endoscopy outpatient as repeat EGD is negative; also have colonoscopy is negative and anemia persists Patient scheduled for colonoscopy tomorrow in a.m. to further evaluate the cause of Severe CYDNEY Eliquis on hold Continue IV iron (Venofer); transition to oral iron once stable and tolerating PO. Celiac serologies ordered to assess for malabsorption Monitor hemoglobin daily If GI workup remains negative and anemia persists, consider referral to hematology for evaluation of non-GI causes (bone marrow disorders, although normal WBC and platelets make this less likely). 2. TIA-like symptoms: CTA head/neck and CT head were negative. Neurology consulted and recommended brain MRI without contrast. Most likely etiology per neurology: anxiety or panic episode. No evidence of GI cause for symptoms like chest pain or neurologic deficits. Chest pain CAD, workup-negative PE evaluation HEART Score: 1 HTN History of DVT Further management per primary team Hold Eliquis for now Code Status: Full code DVT Prophylaxis: Vanessa Dahl MD Internal Medicine Resident, PGY-2 Date of Service: Dec 02, 2024 Billing Provider: LEXA LOZADA MD, GAURAV, RES Dec 02, 2024 10:01
[2024-12-02] MEDS ORDERED: fentaNYL/PF 50MCG/1 ML 2ML syringe ONE (11:00)
[2024-12-02] MEDS ORDERED: midazolam 1 mg/ML 2ml injection ONE (11:00)
[2024-12-02] MEDS ORDERED: LIDOcaine 2% Viscous 15ml cup ONE (11:02)
[2024-12-02] MEDS: pantoprazole 40mg Tablet.DR PO SCH (14:19)
--- NOTE | 2024-12-02 15:37 | PROGRESS NOTE- Residence ---
Progress Note - Resident Providers to CC Resident Creating Document: KEV PAT RES ~ Antibiotic Timeout Antibiotic Ordered?: No Subjective Seen and examined at the bedside today. Patient denied any shortness of breath chest pain hematemesis, hematochezia, melena nausea vomiting. Objective Vital Signs Date Time Temp Pulse Resp B/P (MAP) Pulse Ox O2 Delivery O2 Flow Rate FiO2 12/02/24 14:00 98.1 76 20 125/66 (85) 98 Room Air 12/02/24 11:28 4.0 Result Diagram: 12/02/24 0605 12/02/24 06 General: Awake and Alert, no acute distress. HEENT: Conjunctiva pale, Sclera clear, Mucus Membranes moist. Neck: Supple without masses and tenderness. Resp: Lungs clear to auscultation bilaterally. Heart: Regular Rate and rhythm, normal S1 and S2 Abdomen: Soft and non tender no organomegaly Extremities: No cyanosis,clubbing or edema. Skin: Warm and Dry. Neurological: Speech is clear, alert, and oriented x 4, no gross neurological deficits Plan Plan A 49-year-old female with past medical history of HTN, DVT and anemia presented to the ED in view of blurriness of vision and chest pain. Patient is admitted for the evaluation management of TIA and chest pain workup. Admitted for possible TIA and syncope, CTA head, CTA head and neck, lucho negative. Hemoglobin 6.1, 2 units transfused. iron-deficiency anemia, EGD and colonoscopy done in September no significant findings, Dr. Gabriel consulted for repeat EGD, today History of DVT,, unknown cause, on Eliquis 5 mg b.i.d., held for possible EGD, restart if no EGD. Presyncope TIA-ruled out CT head, CTA head and neck negative Echo in Sep, 2024: EF: 65%, RVSP: 60 mmHg U tox negative, Orthostatic vitals positive IV fluids at 100 cc/hour Continue Aspirin 81 mg Tele neurology consult, does not think it is a TIA but recommended MRI. Neuro checks,Continue to monitor telemetry Presyncope could be secondary to anemia. 12/02/2024: Aspirin DC today due to gastritis with hemorrhage in EGD Acute on chronic gastritis with hemorrhage Microcytic anemia Patient has low hemoglobin in the previous admissions Follow up with stool occult, iron studies Supplement with iron 12/01/2024 Hemoglobin today 6.1 Ordered 2 units of PRBC Iron studies showed low iron, low ferritin, high TIBC On IV Venofer EGD and colonoscopy done in September showed no significant findings 11/02/24, EGD was done today which showed: Gastritis with hemorrhage As GI specialist recommendation, clear liquid for today and colonoscopy tomorrow Continue Protonix b.i.d., check hemoglobin b.i.d. Chest pain CAD, workup-negative PE evaluation HEART Score: 1 Patient complains of shortness of breaths which might have been secondary to anemia Patient has elevated RVSP in the last Echo, unknown reasons for right-sided heart failure Negative troponins, no EKG changes Lexiscan negative. CTA chest negative for pulmonary embolism Continue aspirin 81 mg Evaluate for pulmonary hypertension 11/02/24: Stopped aspirin today HTN Did not start on any antihypertensives Patient has soft blood pressure Monitor hemodynamics closely History of DVT Eliquis 5 mg renewed, holding evening dose for possible EGD tomorrow. Unknown timeline of DVT, cause of DVT in unknown Code status: Full code Diet: NPO after midnight Anticoagulation: SCDs Disposition: Clear liquid today, NPO after midnight colonoscopy tomorrow Kev Pat MD Internal Medicine Residency Date of Service: Dec 02, 2024 Billing Provider: RAHUL MICHEL MD Common Visit Codes: [id number] INP/OBS CARE(HIGH) KEV PAT, RES Dec 02, 2024 15:37 RAHUL MICHEL MD Dec 02, 2024 20:54
[2024-12-02] MEDS: PEG 3350/Na sulf,bicarb,Cl/KCl oral sol 4 liter bottle PO ONE ×2 (16:58)
[2024-12-02 19:23] LABS: MEAN PLATELET VOLUME 8.6 FL (7.4-10.4); RED CELL DISTRIBUTION WIDTH 17.9 % (11.5-14.5)
[2024-12-03] VITALS (16 sets, daily range): BP systolic 13–138; BP diastolic 41–78; PULSE 61–86; RESP 10–19; TEMP 97.3–98.8; O2SAT 97–100
[2024-12-03 05:59] LABS: MEAN PLATELET VOLUME 8.8 FL (7.4-10.4); RED CELL DISTRIBUTION WIDTH 17.9 % (11.5-14.5)
[2024-12-03 06:02] LABS: CREATININE 0.57 MG/DL (0.40-0.90); TOTAL CARBON DIOXIDE 20.1 MMOL/L (24-32); eCRCL 82 ML/MIN; eGFR > 90 ML/MIN
[2024-12-03] MEDS ORDERED: fentaNYL/PF 50MCG/1 ML 2ML syringe ONE (10:32)
[2024-12-03] MEDS ORDERED: PANT40TA54 PO (12:01)
--- NOTE | 2024-12-03 13:35 | DISCHARGE SUMMARY-Residence ---
Discharge Summary Providers to CC Resident Creating Document: KEV DELACRUZ RES ~ Discharge Summary Admission Diagnosis: CAD AND TIA WORK UP Hospital Course DATE OF ADMISSION: 11/29/24 DATE OF DISCHARGE: 12/03/24 Hospital course: A 49-year-old female with past medical history of HTN, DVT and anemia presented to the ED in view of blurriness of vision and chest discomfort. Patient is admitted for the evaluation management of TIA and chest pain/ presyncope workup. CTA head, CTA head and neck, lucho negative. on 12/01/24: Hemoglobin 6.1, 2 units transfused. iron-deficiency anemia. EGD and colonoscopy done in September no significant findings. History of DVT,, unknown cause, on Eliquis 5 mg b.i.d., held initially. Patient admitted with following workup and treatment Presyncope, TIA-ruled out CT head, CTA head and neck negative Echo in Sep, 2024: EF: 65%, RVSP: 60 mmHg U tox negative, Orthostatic vitals positive IV fluids and Aspirin 81 mg started Tele neurology consult, does not think it is a TIA.Neuro checks,Continue to monitor telemetry Presyncope could be secondary to anemia. 12/02/2024: Aspirin DC today due to gastritis with hemorrhage in EGD Acute on chronic gastritis with hemorrhage Microcytic anemia Patient has low hemoglobin in the previous admissions Follow up with stool occult, iron studies , Supplement with iron 12/01/2024 Hemoglobin today 6.1, Ordered 2 units of PRBC Iron studies showed low iron, low ferritin, high TIBC, On IV Venofer EGD and colonoscopy done in September showed no significant findings 11/02/24, EGD was done which showed: Gastritis with hemorrhage As GI specialist recommendation scheduled for colonoscopy, However due to poor prep, need to be follow up in 1 month Continue Protonix b.i.d., check hemoglobin b.i.d. Chest pain, CAD, workup-negative PE evaluation , HEART Score: 1 Patient complains of shortness of breaths which might have been secondary to anemia Patient has elevated RVSP in the last Echo, unknown reasons for right-sided heart failure Negative troponins, no EKG changes Lexiscan negative. CTA chest negative for pulmonary embolism Continue aspirin 81 mg Evaluate for pulmonary hypertension 11/02/24: Stopped aspirin today HTN; Did not start on any antihypertensives, patient was on to medication for high blood pressure however we hold it. Patient has soft blood pressure. History of DVT Eliquis 5 mg renewed, holding evening dose for possible EGD tomorrow. Unknown timeline of DVT, cause of DVT in unknown Laboratory Tests Test 12/01/24 20:24 12/02/24 06:05 12/02/24 16:49 12/02/24 18:58 White Blood Count 8.8 X10'3 7.8 X10'3 10.1 X10'3 Red Blood Count 3.36 X10'6 3.46 X10'6 3.39 X10'6 Hemoglobin 9.7 g/dl 9.8 g/dl 9.8 g/dl Hematocrit 29.1 % 29.5 % 28.9 % Mean Corpuscular Volume 86.7 FL 85.3 FL 85.2 FL Mean Corpuscular Hemoglobin 28.9 PG 28.3 PG 28.9 PG Mean Corpuscular Hemoglobin Concent 33.4 g/dL 33.2 g/dL 34.0 g/dL Red Cell Distribution Width 17.5 % 17.2 % 17.9 % Platelet Count 296 X10'3 294 X10'3 340 X10'3 Mean Platelet Volume 9.2 FL 8.6 FL 8.6 FL Hematology Comments Neutrophils (%) (Auto) 64.5 % Lymphocytes (%) (Auto) 21.6 % Monocytes (%) (Auto) 8.0 % Eosinophils (%) (Auto) 3.2 % Basophils (%) (Auto) 2.7 % Neutrophils # (Auto) 5.0 X10'3 Lymphocytes # (Auto) 1.7 X10'3 Monocytes # (Auto) 0.6 X10'3 Eosinophils # (Auto) 0.2 X10'3 Basophils # (Auto) 0.2 X10'3 CBC Comment Sodium Level 140 MMOL/L Potassium Level 3.5 MMOL/L Chloride Level 110 MMOL/L Carbon Dioxide Level 21.0 MMOL/L Anion Gap 9 Blood Urea Nitrogen 5 MG/DL Creatinine 0.64 MG/DL Estimated GFR/1.73 m2 > 90 ML/MIN BUN/Creatinine Ratio 7.8 Glucose Level 85 MG/DL Calcium Level 7.9 MG/DL Magnesium Level 1.9 MG/DL Albumin 3.0 G/DL Chemistry Comments Test 12/03/24 05:31 White Blood Count 8.2 X10'3 Red Blood Count 3.35 X10'6 Hemoglobin 9.6 g/dl Hematocrit 28.7 % Mean Corpuscular Volume 85.8 FL Mean Corpuscular Hemoglobin 28.6 PG Mean Corpuscular Hemoglobin Concent 33.3 g/dL Red Cell Distribution Width 17.9 % Platelet Count 330 X10'3 Mean Platelet Volume 8.8 FL Neutrophils (%) (Auto) 67.6 % Lymphocytes (%) (Auto) 19.0 % Monocytes (%) (Auto) 9.1 % Eosinophils (%) (Auto) 2.8 % Basophils (%) (Auto) 1.5 % Neutrophils # (Auto) 5.5 X10'3 Lymphocytes # (Auto) 1.5 X10'3 Monocytes # (Auto) 0.7 X10'3 Eosinophils # (Auto) 0.2 X10'3 Basophils # (Auto) 0.1 X10'3 CBC Comment Sodium Level 139 MMOL/L Potassium Level 3.6 MMOL/L Chloride Level 110 MMOL/L Carbon Dioxide Level 20.1 MMOL/L Anion Gap 9 Blood Urea Nitrogen 6 MG/DL Creatinine 0.57 MG/DL Estimated GFR/1.73 m2 > 90 ML/MIN BUN/Creatinine Ratio 10.5 Glucose Level 90 MG/DL Calcium Level 7.9 MG/DL Magnesium Level 1.9 MG/DL Albumin 2.9 G/DL Chemistry Comments Physical exam on discharge day General: Awake and Alert, no acute distress. HEENT: Conjunctiva pale, Sclera clear, Mucus Membranes moist. Neck: Supple without masses and tenderness. Resp: Lungs clear to auscultation bilaterally. Heart: Regular Rate and rhythm, normal S1 and S2 Abdomen: Soft and non tender no organomegaly Extremities: No cyanosis,clubbing or edema. Skin: Warm and Dry. Neurological: Speech is clear, alert, and oriented x 4, no gross neurological deficits Patient discharged home with following instruction; Please follow-up with your PCP in one week. Please follow-up with Dr. Gabriel in one month for colonoscopy. Continue take medication as directed. Return to ED if you notice any GI bleeding. Return to ED if you noticed any prolonged bleeding from anywhere your body and stopped taking Eliquis. Check your hemoglobin in one week to monitor any possible drop. Discharge Diagnosis\Comment: TIA ruled out Presyncope possibly secondary to hypochromic microcytic anemia Acute on chronic gastritis with hemorrhage Chest pain possibly secondary to gastritis, coronary artery disease workup negative Hypertension History of DVT Operations\Procedures: 12/02/24, EGD was done and showed: Gastritis with hemorrhage 12/03/24, Incomplete Colonoscopy due to poor prep Consultants: consumer relations specialist GI team, Dr Gabriel Complications: none Condition on DC: Stable New Medications: Pantoprazole Sodium (Pantoprazole Sodium) 40 Mg Tablet.dr 40 MG PO BID for 30 Days, #60 TAB.SR Continued Medications: Apixaban (Eliquis) 5 Mg Tablet 1 TAB PO Q12H for 30 Days, #74 TAB 0 Refills Ascorbic Acid* (Vitamin C*) 500 Mg Tablet 500 MG PO BID@0830,1730 for 30 Days, #60 TAB Multivitamin W/Iron, Minerals (Multivitamins with Iron) 1 Each Tab.chew 1 TAB PO DAILY for 30 Days, #30 TAB 0 Refills Discontinued Medications: Amlodipine Besylate (Amlodipine Besylate) 5 Mg Tablet 1 TAB PO DAILY Losartan Potassium (Losartan Potassium) 100 Mg Tablet 1 TAB PO DAILY Discharge Summary: see hospital course *Problems/Diagnosis: (1) Upper GI bleed (2) Anemia Status: Acute Total Time Spent on D/C: > 30 Minutes Date of Service: Dec 03, 2024 Billing Provider: RAHUL MICHEL MD Common Visit Codes: [id number] DISCH DAY >30min KEV DELACRUZ, RES Dec 03, 2024 13:21 RAHUL MICHEL MD Dec 03, 2024 22:12
--- NOTE | 2024-12-04 14:10 | PATHOLOGY REPORT ---
[facility] [address] [place] [address] SURGICAL PATHOLOGY REPORT CaseNumber: [id number] Surgeon:Maksim Landaverde M.D. CLINICAL INFORMATION CLINICAL INFORMATION: Suspected upper gastrointestinal bleeding in patient with unexplained iron defi ciency anemia. DIAGNOSIS DIAGNOSIS: A.SECOND PORTION OF DUODENUM, BIOPSIES X 3 - HISTOLOGICALLY UNREMARKABLE DUODENAL-TYPE MUCOSA DIAGNOSIS: B.GASTRIC ANTRUM, BIOPSY - NO SIGNIFICANT INFLAMMATION, EDEMA, OR VASCULAR CONGESTION - NO INTESTINAL METAPLASIA BY PAS STAINING - NO DYSPLASIA OR MALIGNANCY - NO H. PYLORI ORGANISMS ARE HIGHLIGHTED BY IMMUNOHISTOCHEMISTRY MICROSCOPIC DESCRIPTION A. SECOND PORTION OF DUODENUM, BIOPSIES X 3 MICROSCOPIC DESCRIPTION: Reviewed is a single H&E-stained slide showing serial sections and levels of three fragments of duodenal type mucosa. There is no evidence of erosion or ulceration. There is no significant variability of villous in size or shape of villous blunting. There is no significant infl ammation. There are no dysplastic or neoplastic features. B. GASTRIC ANTRUM, BIOPSY MICROSCOPIC DESCRIPTION: Reviewed is a single H&E-stained slide showing serial sections and levels of a single fragment of gastric antral type mucosa. There is no significant inflammation, edema, or vas cular congestion. There is no intestinal metaplasia by PAS staining. There are no dysplastic or neopl astic features. Also, no H. pylori organisms are highlighted by immunohistochemistry. GROSS DESCRIPTION A. SECOND PORTION OF DUODENUM, BIOPSIES X 3 GROSS DESCRIPTION: Received in a container of formalin labeled with the patient's name, number, and " second portion of duodenum BX" are 3 pieces of zamorano tissue were 0.2-0.6 x 0.2 x 0.1 cm submitted camilo rendon as A1. The time at which the specimen was removed was 1110. The time at which the specimen was pl aced in formalin was 1111. B. GASTRIC ANTRUM, BIOPSY GROSS DESCRIPTION: Received in a container of formalin labeled with the patient's name, number, and " antrum BX" is a 0.6 x 0.2 x 0.1 cm piece of zamorano tissue submitted entirely as B1. The time at which th e specimen was removed was 1118. The time at which the specimen was placed in formalin was 1119. Electronically signed by: Cody Sethi M.D. 12/04/2024 1:37:00 PM
[2024-12-04] MEDS ORDERED: CEPH-585 PO (22:36)
== END 2024-12-03 14:07 | disposition home or self-care (01) | DRG 241 ==
LOC: ER 18:06 → UNDOADMIN 11-30 01:56 → ED HOLD 11-30 01:56 → EDBEDREQ 11-30 03:24 → PCU 3S 11-30 04:00
PROVIDERS: ADMIT Internal Medicine; ATTEND Internal Medicine
PROC: 4A02XM4 Measurement of Cardiac Total Activity, External Approach (ICD-10-PCS; 2024-11-30)
PROC: 3E033HZ Introduction of Radioactive Substance into Peripheral Vein, Percutaneous Approach (ICD-10-PCS; 2024-11-30)
PROC: B3251ZZ Computerized Tomography (CT Scan) of Bilateral Common Carotid Arteries using Low Osmolar Contrast (ICD-10-PCS; 2024-11-30)
PROC: B32G1ZZ Computerized Tomography (CT Scan) of Bilateral Vertebral Arteries using Low Osmolar Contrast (ICD-10-PCS; 2024-11-30)
PROC: B32R1ZZ Computerized Tomography (CT Scan) of Intracranial Arteries using Low Osmolar Contrast (ICD-10-PCS; 2024-11-30)
PROC: B3281ZZ Computerized Tomography (CT Scan) of Bilateral Internal Carotid Arteries using Low Osmolar Contrast (ICD-10-PCS; 2024-11-30)
PROC: B32T1ZZ Computerized Tomography (CT Scan) of Left Pulmonary Artery using Low Osmolar Contrast (ICD-10-PCS; 2024-11-30)
PROC: B3201ZZ Computerized Tomography (CT Scan) of Thoracic Aorta using Low Osmolar Contrast (ICD-10-PCS; 2024-11-30)
PROC: B32S1ZZ Computerized Tomography (CT Scan) of Right Pulmonary Artery using Low Osmolar Contrast (ICD-10-PCS; 2024-11-30)
PROC: 30233N1 Transfusion of Nonautologous Red Blood Cells into Peripheral Vein, Percutaneous Approach (ICD-10-PCS; 2024-12-01)
PROC: 0DB78ZX Excision of Stomach, Pylorus, Via Natural or Artificial Opening Endoscopic, Diagnostic (ICD-10-PCS; 2024-12-02)
PROC: 0DB98ZX Excision of Duodenum, Via Natural or Artificial Opening Endoscopic, Diagnostic (ICD-10-PCS; principal; 2024-12-02 10:58)
PROC: 0DJD8ZZ Inspection of Lower Intestinal Tract, Via Natural or Artificial Opening Endoscopic (ICD-10-PCS; 2024-12-03)
DX: K29.01 Acute gastritis with bleeding (principal); D50.8 Other iron deficiency anemias; I10 Essential (primary) hypertension; I25.10 Atherosclerotic heart disease of native coronary artery without angina pectoris; Z79.01 Long term (current) use of anticoagulants; Z79.899 Other long term (current) drug therapy; Z86.718 Personal history of other venous thrombosis and embolism
CPT/HCPCS: 36415; 36430; 43239; 45331; 70450; 70496; 70498; 71045; 71275; 78452; 80048; 80061; 80305; 80320; 81001; 82728; 83036; 83540; 83550; 83605; 83735; 83880; 84132; 84466; 84484; 85008; 85025; 85027; 86885; 86900; 86901; 86920; 87040; 87081; 87088; 92508; 92616; 93005; 93017; 97116; 97161; 97530; 99285; A9500; G0378; J0280; J1756; J2250; J2704; J2785; J3010; J7030; J7040; P9016; Q9967

== ENCOUNTER 2024-12-04 18:55 | Emergency (ER) | payer MEDICAID ==
[~2024-12-04] VITALS: Ht 149.9 cm; Wt 61.5 kg
[~2024-12-04 18:55] MED LIST changes: -AMLO5TAB16 PO; -LOSA100T58 PO
[2024-12-04 19:31] VITALS: TEMP 97.6
[2024-12-04 20:01] LABS: MEAN PLATELET VOLUME 8.3 FL (7.4-10.4); RED CELL DISTRIBUTION WIDTH 18.7 % (11.5-14.5)
[2024-12-04 20:32] LABS: CREATININE 0.81 MG/DL (0.40-0.90); TOTAL CARBON DIOXIDE 22.6 MMOL/L (24-32); eCRCL 58 ML/MIN; eGFR 75 ML/MIN
--- NOTE | 2024-12-04 21:19 | Physician Documentation ---
History of Present Illness ~ Chief Complaint: Arm Pain Stated Complaint: R ARM SWOLLEN Time Seen by MD: 19:39 Primary Medical Doctor: Dr Fernandes [facility] Mode of Arrival: POV HPI This is a pleasant 49-year-old female who presents for evaluation of right elbow region skin swelling that began today. She has been recently discharged from our facility after spending several days and being evaluated for potential stroke workup versus chest pain. She states that she had multiple IVs placed in bilateral upper extremities. Yesterday she noticed some redness in the crease of her elbow where the IV very puncture site was. This morning when she woke up it was swollen and tender to palpation. No palliating or aggravating factors. Denies any fever or chills. Denies history of clotting disorders. Denies chest pain or difficulty breathing. No concern for tobacco, alcohol or illicit substances use Medication Reconciliation Allergies: Coded Allergies: No Known Allergies (Unverified , 12/04/24) Scheduled Apixaban (Eliquis), 1 TAB PO Q12H Ascorbic Acid* (Vitamin C*), 500 MG PO BID@0830,1730 Multivitamin W/Iron, Minerals (Multivitamins with Iron), 1 TAB PO DAILY Pantoprazole Sodium (Pantoprazole Sodium), 40 MG PO BID Discontinued Medications Amlodipine Besylate (Amlodipine Besylate), 1 TAB PO DAILY, (Reported) Losartan Potassium (Losartan Potassium), 1 TAB PO DAILY, (Reported) Pantoprazole Sodium (Pantoprazole Sodium), 40 MG PO BID Discontinued Reason: patient no longer taking Past Medical History Past Medical History: Deep Vein Thrombosis Patient History: Patient reports no known family medical history. Review of Systems ROS 10 point review of systems was performed and unless noted above in HPI is negative for acute process/complaint. Physical Exam Vital Signs: Temperature: 97.6, Source: Temporal, Heart Rate: 85, Respiratory Rate: 18, BP: 132/87, Pulse Oximetry: 99, Weight: 61.500 Physical Exam GENERAL: Awake, alert, oriented, GCS 15, no apparent distress, non-toxic appearing, answers questions, follows commands appropriately. Examined in triage HEENT: Atraumatic, normocephalic, pupils equal, extraocular muscles intact, sclerae anicteric, mucus membranes moist, oropharynx is clear, no stridor. NECK: supple, full active range of motion, trachea midline, no thyromegaly, no lymphadenopathy, no JVD. CARDIOVASCULAR: regular rate/rhythm, no murmurs/gallops/rubs, Pulses are 2+ in all extremities and symmetric. Capillary refill less than 2 seconds. PULMONARY: Nonlabored, good air movement ,no respiratory distress, speaking in full sentences, clear to auscultation bilaterally, no wheezing, no ronchi, no rales, no accessory muscle use. GASTROINTESTINAL: Soft, non-tender, non-distended, normal active bowel sounds, no organomegaly, no pulsatile masses, no CVA tenderness. NEUROLOGIC: Lucid with normal mental status. Normal facial symmetry. Moves all extremities symmetrically and with purpose. No truncal ataxia. Speech is fluid without evidence of dysarthria or aphasia, no focal deficits appreciated. MUSCULOSKELETAL: There is full range of motion of all extremities. There is no joint pain or joint swelling or joint erythema. There is no muscle pain or tenderness or swelling. EXTREMITIES: warm, well-perfused, no cyanosis, no clubbing, no edema, no acute deformities. Skin: warm, dry, no rashes or lesions, no jaundice, no petechiae orpurpura. No ecchymosis. PSYCHIATRIC: Normal affect, normal insight, normal concentration. Focused exam: There is a erythema, swelling, tenderness to palpation and calor without crepitus to the crease of the elbow and medial aspect of the elbow. Full range of motion. Neurovascularly intact distally to the site of injury. Progress Results/Orders Results/Orders Orders - CLINT MCKEON DO Vl Venous (12/04/24 19:40) Culture Blood (12/04/24 19:40) Completed Orders - CLINT MCKEON DO Vl Venous (12/04/24 19:40) Cbc/Diff (12/04/24 19:40) ESR (12/04/24 19:40) C-Reactive Protein (12/04/24 19:40) CMP (12/04/24 19:40) Lacticsepsis (12/04/24 19:40) Vital Signs 12/04/24 12/04/24 12/04/24 12/04/24 19:31 21:00 21:05 21:55 Temp 97.6 Pulse 100 85 77 Resp 15 18 18 18 B/P (MAP) 127/91 132/87 (102) 134/72 (92) Pulse Ox 99 99 99 Laboratory Tests Test 12/04/24 19:50 White Blood Count 12.1 H Red Blood Count 4.02 L Hemoglobin 11.5 L Hematocrit 34.8 L Mean Corpuscular Volume 86.8 Mean Corpuscular Hemoglobin 28.5 Mean Corpuscular Hemoglobin Concent 32.9 L Red Cell Distribution Width 18.7 H Platelet Count 388 Mean Platelet Volume 8.3 Neutrophils (%) (Auto) 74.5 Lymphocytes (%) (Auto) 14.6 L Monocytes (%) (Auto) 9.3 Eosinophils (%) (Auto) 0.8 Basophils (%) (Auto) 0.8 Neutrophils # (Auto) 9.0 H Lymphocytes # (Auto) 1.8 Monocytes # (Auto) 1.1 H Eosinophils # (Auto) 0.1 Basophils # (Auto) 0.1 CBC Comment Erythrocyte Sedimentation Rate 16 Sodium Level 136 Potassium Level 3.3 L Chloride Level 104 Carbon Dioxide Level 22.6 L Anion Gap 9 Blood Urea Nitrogen 9 Creatinine 0.81 Estimated GFR/1.73 m2 75 BUN/Creatinine Ratio 11.1 Glucose Level 111 H Lactic Acid Level 1.1 Calcium Level 8.7 Total Bilirubin 0.5 Aspartate Amino Transf (AST/SGOT) 20 Alanine Aminotransferase (ALT/SGPT) 24 Alkaline Phosphatase 75 C-Reactive Protein 2.73 H Total Protein 7.7 Albumin 3.7 Globulin 4.0 Albumin/Globulin Ratio 0.9 L Chemistry Comments Microbiology Date/Time Source Procedure Growth Status 12/04/24 19:54 Blood Hand Right Blood Culture - Preliminary NEGATIVE (LESS THAN 24 HOURS) Resulted Medical Decision Making Findings Facility Status: ED [facility], ON LICENSE OF [facility] process The plan was discussed with the patient, who demonstrates clear understanding of the plan and is in agreement with the plan unless otherwise noted in the chart. All questions have been answered, all concerns were addressed unless otherwise documented. I was available throughout their ED stay for frequent reassessment and questions. Differential Diagnoses (considered and possible or likely): [Cellulitis, thrombophlebitis, DVT of the upper extremity is a result of recent IV, less likely osteomyelitis, clinically not consistent with septic joint, less likely necrotizing infection] ??Differential Diagnoses (considered and unlikely, not requiring evaluation currently): [No evidence of neurovascular injury] [facility] Data Please see [facility] for the following: Independent Historians and external Records Review. Historian: [Patient] Independent Historians: ? Record review Medication Management: [Reviewed medication list] Social History and determinants: [Reviewed] Please see the body of the note for the following: Any independent interpretations of ECG, imaging studies. All vitals signs/haemodynamics, ordered tests were independently reviewed and interpreted by myself. Nursing triage complaint and vitals reviewed, additional nursing notes were reviewed as available and I agree unless otherwise noted or documented in contradiction in the chart Vital Signs: Independently reviewed Labs: Independently interpreted Imaging: Independently interpreted Old Medical Records: Independently reviewed, see HPI for relevant summary and information Pulse Oximetry: [99%] interpreted as [normal on room air] by me Additionally notably showing: [Hemodynamically stable. Very minimal leukocyto sis. Ultrasound consistent with a superficial vein clot.] Tests considered but not ordered include: [CT has been considered but does not appear to be necessary] Social Determinants of Health Impact: Patient was evaluated in [facility] [place] to healthcare due to below par ratio of patient to medical providers. [] Comorbid Conditions Impacting Present Evaluation and Care/Treatment: [Recent chiquita puncture] Management Discussions with other Healthcare Providers: [None Treatment and Disposition Medication Management (Given or considered): [Superficial vein clot does not r equire anticoagulation]. See EMR for details Consideration for Hospitalization/Escalation/Deescalation of Care: Admission for observation has been considered, [however the patient is able to tolerate p.o., their symptoms are controlled, they are able to rely on oral medications, and their chief complaint/diagnosis can be managed on outpatient basis.] ?ED Course:?[No clinical deterioration] ?Shared decision making:?[Patient is hemodynamically stable for discharge home with follow with their primary care provider. [ ] Specific and cautious return precautions provided and discussed with full understanding. Any incidental findings were also discussed and follow up recommendations given. [] All questions answered. Patient/family were able to verbalize back return precautions. Patient/family agree to plan. Copies of imaging and laboratory studies were provided.] Code status:?FULL Please see the full Electronic Medical Record for full details of nursing documentation, medications list, other records of complete past medical history and conditions, vital signs, laboratory studies, and any radiologic study interpretations by radiologists. Portions of this note were completed using dragon dictation software and as a result there may exist minor errors in spelling. I have reviewed elements of past family and social history and agree as included in note. Departure Disposition: 01 HOME / SELF CARE / HOMELESS Impression: Primary Impression: Basilic vein thrombosis Additional Impression: Cellulitis of arm Condition: Stable Discharge Instructions: Cellulitis, Adult, Thrombophlebitis Referrals: NO PRIMARY CARE PROVIDER (PCP) Prescriptions Cephalexin*Monohydrate* (Keflex*) 500 Mg Capsule 1 CAP PO Q6H for 10 Days, #40 CAP Prov: CLINT MCKEON DO 12/04/24 Education Educated: Patient Educated regarding: diagnosis, treatment, prognosis, need for follow up Signature Scribe Signature: No scribe Attestation: This note accurately reflects clinical decisions, work performed by myself, DO LINDA Cervantes NICHOLAS M DO Dec 04, 2024 21:19
--- NOTE | 2024-12-04 22:18 | VASCULAR REPORT ---
CLINICAL HISTORY: Swelling of the medial right elbow status post IV use during hospital stay TECHNIQUE: Color and duplex doppler imaging of the right upper extremity veins and right subclavian v ein was performed. Vessel compression if possible was also performed. WID: COMPARISON: VASC VL VENOUS on DOS: 09/20/24, VASC VL VENOUS on DOS: 07/29/24 FINDINGS: Mixed echogenicity predominantly hypoechoic occlusive thrombus in the distal basilic vein. The right internal jugular, axillary, basilic, cephalic, brachial , radial, and ulnar veins are patent and dem onstrate normal compressibility and flow. The right subclavian is patent. Subcutaneous edema in the region of the medial elbow and lower upper arm. IMPRESSION: NO SONOGRAPHIC EVIDENCE FOR DEEP VENOUS THROMBOSIS IN THE RIGHT UPPER EXTREMITY VEINS. Occlusive subacute appearing superficial vein thrombus in the distal basilic vein. Subcutaneous edema in the region of the medial elbow and lower aspect of the upper arm.
[2024-12-04] MEDS ORDERED: CEPH-585 PO (22:36)
[2024-12-04 22:57] VITALS: BP 123/68; PULSE 81; RESP 18; O2SAT 98
== END 2024-12-04 22:59 | disposition home or self-care (01) ==
LOC: ER 18:55
DX: I82.611 Acute embolism and thrombosis of superficial veins of right upper extremity (principal); L03.113 Cellulitis of right upper limb; Z86.718 Personal history of other venous thrombosis and embolism; Z79.899 Other long term (current) drug therapy
CPT/HCPCS: 36415; 80053; 83605; 85025; 85651; 86140; 87040; 93971; 99284; 99285

== ENCOUNTER 2025-01-10 07:16 | Day surgery (SDC) | payer MEDICAID ==
[~2025-01-10] VITALS: Ht 149.9 cm; Wt 58.4 kg
[2025-01-10] VITALS (8 sets, daily range): BP systolic 117–147; BP diastolic 54–76; PULSE 69–87; RESP 12–15; TEMP 97.8; O2SAT 96–100
[2025-01-10] MEDS ORDERED: AMLO5TAB PO (08:29)
[2025-01-10] MEDS ORDERED: PANT40TA54 PO (08:29)
[2025-01-10] MEDS ORDERED: ASCO500T28 PO (08:35)
[2025-01-10] MEDS ORDERED: APIX5TAB3 PO (08:35)
--- NOTE | 2025-01-10 12:05 | PROGRESS NOTE ---
H&P - Interval Note Providers to CC ~ Patient examined and condition: Yes Interval changes as follows: H and P paper done today. R thyroid nodule TIRADS 4. Risks benefits alt of FNA d/w pt and informed consent disclosed. ONESIMO ROWE MD Jan 10, 2025 12:05
--- NOTE | 2025-01-10 12:06 | PROGRESS NOTE ---
Progress Note - Angio Providers to CC ~ Angio Progress Note: S/P R thyroid nodule FNA, no immed complications EBL less than one cc. Dictated. ONESIMO ROWE MD Jan 10, 2025 12:06
--- NOTE | 2025-01-10 17:02 | RADIOLOGY REPORT ---
Ultrasound-guided FNA right thyroid lobe nodule biopsy Reason for study: Patient with history of: TI RADS 4, 1.8 cm right thyroid lobe nodule Procedure: THYROID ultrasound biopsy The nature, alternatives and risks of the procedure were discussed with the patient. Informed consent was disclosed to the patient. A surgical timeout was performed. A superficial skin wheel was raised on the anterior neck with a 21-gauge needle and approximately 2 cc of 1% lidocaine solution. Utilizing sterile technique and ultrasound guidance, 25-gauge 1.5 inch long needle was inserted into the right thyroid mass samples were placed on slides as well as within a Carbo wax fluid prepped solution. There were no immediate comp occasions. Scanning after 4 passes demonstrated no evidence of hematoma or extravasation. Color Doppler imaging was utilized. Impression: Successful right thyroid nodule biopsy with 4 passes FNA 25-gauge needle technique. Pathology report is pending. Patient tolerated procedure well and left outpatient procedure area after a period of 1 hour observation in unremarkable stable condition.
== END 2025-01-10 10:25 | disposition home or self-care (01) ==
LOC: SSTAY O 07:16
PROVIDERS: ATTEND Radiology Diagnostic Radiology
DX: E04.1 Nontoxic single thyroid nodule (principal); Z79.01 Long term (current) use of anticoagulants; Z79.899 Other long term (current) drug therapy
CPT/HCPCS: 10005

== ENCOUNTER 2025-02-05 07:13 | Day surgery (SDC) | payer MEDICAID ==
[~2025-02-05] VITALS: Ht 149.9 cm; Wt 58.6 kg
[~2025-02-05 07:13] MED LIST changes: +AMLO5TAB PO; +ASCO500T28 PO; -MULT-661 PO; -VITC500T PO
[2025-02-05] MEDS ORDERED: LOSA100T58 PO (07:35)
[2025-02-05] MEDS ORDERED: FERR325T29 (07:35)
[2025-02-05 07:43] VITALS: BP 117/80; PULSE 75; RESP 18; TEMP 97.8; O2SAT 99
[2025-02-05] MEDS ORDERED: normal saline 1000ml 1,000 ML IV SCH (08:20)
[2025-02-05 09:22] VITALS: BP 135/80; PULSE 71; RESP 16; O2SAT 99
[2025-02-05 09:30] VITALS: BP 133/80; PULSE 74; RESP 16; O2SAT 99
[2025-02-05 09:45] VITALS: BP 145/84; PULSE 75; RESP 16; O2SAT 99
--- NOTE | 2025-02-05 10:31 | PROGRESS NOTE ---
H&P - Interval Note Providers to CC ~ Patient examined and condition: Yes Interval changes as follows: Paper H and P in chart today. R thyroid nodule needed more tissue so core tiffanie nned. Risks benefits alt d/w pt and informed consent disclosed. ONESIMO ROWE MD Feb 05, 2025 10:31
--- NOTE | 2025-02-05 11:48 | RADIOLOGY REPORT ---
Ultrasound-guided Core and FNA right thyroid lobe nodule biopsy Reason for study: Patient with history of: TI RADS 4, 1.8 cm right thyroid lobe nodule, past attempt 01/10/25 non diagnostic Procedure: THYROID ultrasound biopsy The nature, alternatives and risks of the procedure were discussed with the patient. Informed consent was disclosed to the patient. A surgical timeout was performed. A superficial skin wheel was raised on the anterior neck with a 21-gauge needle and approximately 2 cc of 1% lidocaine solution. Utilizing sterile technique and ultrasound guidance, three passes of 25-gauge 1.5 inch long needles were inserted into the right thyroid mass and samples were placed on slides as well as within a Carbo wax fluid prepped solution. Next three separate 20g core biopsy specimens were obtained with a [employer] needle system and guide 19g needle under direct ultrasound guidance. There were no immediate complications. Scanning after the passes demonstrated no evidence of hematoma or extravasation. Color Doppler imaging was utilized. Impression: Successful right thyroid nodule biopsy with 3 passes FNA 25-gauge needle technique and 3 core 20g needle passes as well. Pathology report is pending. Patient tolerated procedure well and left outpatient procedure area after a period of 1 hour observation in unremarkable stable condition.
== END 2025-02-05 10:00 | disposition home or self-care (01) ==
LOC: SSTAY O 07:13
PROVIDERS: ATTEND Radiology Diagnostic Radiology
DX: E04.1 Nontoxic single thyroid nodule (principal); I10 Essential (primary) hypertension; Z86.718 Personal history of other venous thrombosis and embolism; Z88.8 Allergy status to other drugs, medicaments and biological substances
CPT/HCPCS: 60100; 76942

== ENCOUNTER 2025-02-16 10:47 | Emergency (ER) | payer MEDICAID ==
[~2025-02-16] VITALS: Ht 149.9 cm; Wt 59.8 kg
[~2025-02-16 10:47] MED LIST changes: -APIX5TAB3 PO; -ASCO500T28 PO; +FERR325T29; +LOSA100T58 PO; -PANT40TA54 PO
--- NOTE | 2025-02-16 11:08 | ELECTROCARDIOGRAPH REPORT ---
[facility] Test Date: 2025-02-16 Test Time: 11:06:57 Pat Name: PORTER GALLO Department: [facility]- Patient ID: [id number] Room: Gender: F Shuttle Hand: : 1975 Requested By: JOS ROE Order Number: [id number] Reading MD: Measurements Intervals [place] Rate: 92 P: 81 [place]: 121 QRS: 84 QRSD: 88 T: 36 QT: 362 QTc: 448 Interpretive Statements Sinus rhythm Low voltage, precordial leads Please click the below link to view image of tracing.
[2025-02-16 11:28] LABS: MEAN PLATELET VOLUME 8.4 FL (7.4-10.4); RED CELL DISTRIBUTION WIDTH 15.7 % (11.5-14.5)
--- NOTE | 2025-02-16 11:44 | RADIOLOGY REPORT ---
DI CHEST,SINGLE VIEW, HISTORY: CP COMPARISON: CT CTA CHEST PE W/ IV CONTRAST on DOS: 11/30/24, DI CHEST,SINGLE VIEW on DOS: 11/29/24, DI CHEST,SINGLE VIEW on DOS: 09/19/24 CT CTA CHEST PE W/ IV CONTRAST on DOS: 11/30/24, DI CHEST,SINGLE VIEW on DOS: 11/29/24, DI CHEST,SINGLE VIEW on DOS: 09/19/24 TECHNICAL DATA: 1 view of the chest was obtained. FINDINGS: Lines and tubes: None Cardiomediastinal silhouette: normal Pulmonary vasculature: normal Lung expansion: normal Lung airspace: normal Lung interstitium: normal Pleura: normal Pneumothorax: no Bones: Unremarkable Other: no IMPRESSION: No acute intrathoracic abnormality.
[2025-02-16 11:45] LABS: CREATININE 0.81 MG/DL (0.40-0.90); PRO BRAIN NATRIURETIC PEPTIDE 45 PG/ML (0-125); TOTAL CARBON DIOXIDE 26.4 MMOL/L (24-32); eCRCL 57 ML/MIN; eGFR 75 ML/MIN
--- NOTE | 2025-02-16 13:00 | Physician Documentation ---
History of Present Illness ~ Chief Complaint: Cold, cough & congestion Stated Complaint: COUGH Time Seen by MD: 12:30 Primary Medical Doctor: Dr Fernandes, [facility] Source: patient (3) HPI Patient comes in for evaluation of a cough, which she reports is dry and nonproductive, and began about three days ago. It bothers her more at night, and she reports that she spent 7 hours coughing last night. Patient reports that she had a fever last night but did not take her temperature, has not taken any antipyretics today that would alter the reading in the emergency department vitals. There are no associated URI symptoms such as rhinorrhea or ear pain, she does have a sore throat but mostly with coughing. When asked about chest pain she reports that she does have chest pain just to the right of midline when she coughs, or when she is walking. She reports that walking makes her feel somewhat tired and dizzy. She carries a diagnosis of coronary artery disease and when asked about it she reports that she had a heart attack in September of this year, was seen here for it, but received no treatment. A review of the record for her prior visits shows no evidence of a coronary artery disease diagnosis. Medication Reconciliation Allergies: Coded Allergies: No Known Allergies (Unverified , 02/16/25) Scheduled Amlodipine Besylate (Amlodipine Besylate), 1 TABLET PO DAILY, (Reported) Ferrous Sulfate (Ferrous Sulfate), DAILY, (Reported) Losartan Potassium (Losartan Potassium), 1 TAB PO DAILY, (Reported) Past Medical History Past Medical History: Hypertension, Deep Vein Thrombosis, Anxiety, Panic Disorder Last Menstrual Period: Feb 08, 2025 Patient History: Patient reports no known family medical history. Smoking Status: Never smoker Alcohol Use: None Drug Use: none Review of Systems All Other Systems at this time: Reviewed and Negative Physical Exam Vital Signs: Temperature: 98.5, Source: Temporal, Heart Rate: 106, Respiratory Rate: 16, BP: 155/84, Pulse Oximetry: 99, Weight: 59.800 Oxygen Flow Rate: 0 Physical Exam General: Pt is awake, alert, oriented x4 in no acute distress and well appearing. Head: Normocephalic and atraumatic. Eyes: Conjunctiva normal. ENT: Mucous membranes moist. Neck: Supple. Chest: Clear to auscultation bilaterally, without rales, rhonchi, or wheezes. There is no accessory muscle use or retractions. Cardiac: Regular rate and rhythm without murmurs, gallops or rubs. Palpation of the chest wall over the sternal manubrium reproduces her pain. Abd: Soft, nondistended, nontender, with normoactive bowel sounds. No guarding or rebound. Extremities: Within normal limits without cyanosis, clubbing, or edema. Skin: [place], warm and dry with no significant rash appreciated. Neuro: Cranial nerves II-XII grossly intact. The gait is normal. Progress Results/Orders Results/Orders Orders - JOS ROE MD Chest,Single View (02/16/25 11:26) Monitor (02/16/25 11:02) Saline Lock (02/16/25 11:02) Oxygen (02/16/25 11:02) Hs Troponin I W Calculations (02/16/25 14:02) Completed Orders - JOS ROE MD Chest,Single View (02/16/25 11:26) Cbc/Diff (02/16/25 11:02) BMP (02/16/25 11:02) PBNP (02/16/25 11:02) Electrocardiogram (02/16/25 11:02) Hs Troponin I W Calculations (02/16/25 11:02) Hs Troponin I W Calculations (02/16/25 13:02) Vital Signs 02/16/25 02/16/25 02/16/25 10:57 12:32 12:33 Temp 98.5 Pulse 106 Resp 18 16 B/P (MAP) 155/84 Pulse Ox 99 99 O2 Delivery Room Air* O2 Flow Rate 0 0 FiO2 21 Laboratory Tests Test 02/16/25 11:11 02/16/25 13:49 White Blood Count 7.6 Red Blood Count 4.07 L Hemoglobin 12.4 Hematocrit 36.9 Mean Corpuscular Volume 90.6 Mean Corpuscular Hemoglobin 30.4 Mean Corpuscular Hemoglobin Concent 33.6 Red Cell Distribution Width 15.7 H Platelet Count 317 Mean Platelet Volume 8.4 Neutrophils (%) (Auto) 59.9 Lymphocytes (%) (Auto) 29.9 Monocytes (%) (Auto) 7.2 Eosinophils (%) (Auto) 1.7 Basophils (%) (Auto) 1.3 H Neutrophils # (Auto) 4.6 Lymphocytes # (Auto) 2.3 Monocytes # (Auto) 0.6 Eosinophils # (Auto) 0.1 Basophils # (Auto) 0.1 CBC Comment Sodium Level 141 Potassium Level 3.9 Chloride Level 107 Carbon Dioxide Level 26.4 Anion Gap 8 Blood Urea Nitrogen 7 Creatinine 0.81 Estimated GFR/1.73 m2 75 BUN/Creatinine Ratio 8.6 L Glucose Level 102 Calcium Level 8.7 Troponin I High Sensitivity 20 19 Pro-B-Type Natriuretic Peptide 45 Albumin 3.6 Chemistry Comments Troponin I High Sens Percent Delta 5 Troponin I Hi Sens Absolute Change -1 EKG/XRAY/CT/US/VASC/MRI EKG : EKG Rate: 92 EKG: NSR EKG Blocks: none [place]: normal Hypertrophy: none Additional Comment Interpreted by me Medical Decision Making Differential Diagnosis Patient presenting with cough. No respiratory distress, no hypoxia, no findings consistent with pneumonia. There is no elevation of troponin, normal nondiagnostic EKG, and patient does not in fact have a history of coronary artery disease so far as I can tell. She is reassured and advised to follow up with her primary care physician. Stable for discharge from the emergency department. She understands to return to the emergency department for worsening chest pain, fever, increasing shortness of breath, or other concerns. Departure Time of Disposition: 15:04 Disposition: 01 HOME / SELF CARE / HOMELESS Impression: Primary Impression: Cough Qualified Codes: R05.1 - Acute cough Condition: Stable Discharge Instructions: Cough, Adult Additional Instructions: Stay well hydrated and rest. You may try [id number] cough preparations if they help. Follow-up with your regular provider. Return to the emergency department if fever, respiratory distress, worsening chest pain, or any other concerns. Referrals: NO PRIMARY CARE PROVIDER (PCP) Education Educated: Patient Educated regarding: diagnosis, treatment Signature Scribe Signature: Attestation: JOS ROE MD Feb 16, 2025 13:00
[2025-02-16 15:20] VITALS: BP 117/77; PULSE 85; RESP 16; TEMP 98; O2SAT 98
== END 2025-02-16 15:21 | disposition home or self-care (01) ==
LOC: ER 10:47
DX: R05.9 Cough, unspecified (principal); I10 Essential (primary) hypertension; F41.9 Anxiety disorder, unspecified; I25.10 Atherosclerotic heart disease of native coronary artery without angina pectoris; I25.2 Old myocardial infarction; Z86.718 Personal history of other venous thrombosis and embolism; Z79.899 Other long term (current) drug therapy
CPT/HCPCS: 36415; 71045; 80048; 83880; 84484; 85025; 93005; 99285